=== PATIENT | female | born 1950 | race Caucasian/White ===

== ENCOUNTER 2017-12-13 09:45 | Outpatient (RCR) | payer MEDICARE, OTHER, SELFPAY ==
--- NOTE | 2017-11-01 12:23 | PT.OIE ---
Current Diagnoses Strain of unspecified muscle, fascia and tendon at shoulder and upper arm level, right arm, initial encounter (10/31/17) Sprain of unspecified ligament of right ankle, initial encounter (10/31/17) Past Medical History (Last Reviewed 09/13/17 @ 16:46 by Dannielle Craig DO) Allergic rhinitis (Chronic Unknown) Asthma (Chronic Unknown) Herpes (Chronic 1971) Abnormal Pap smear of cervix (Resolved Unknown) Cataracts, bilateral (Resolved 2013) Chickenpox (Resolved ~1950) Colon polyps (Resolved 2014) History of DVT (deep vein thrombosis) (Resolved ~2006) Measles (Resolved ~1950) Past Surgical History (Last Reviewed 09/13/17 @ 16:46 by Dannielle Craig DO) Hx of inguinal hernia repair (Resolved 06/2012) Hx of shoulder surgery (Resolved 2002) History of cataract removal with insertion of prosthetic lens History of knee replacement (2006) Status post colectomy Provider Visit Care Team Role Provider Type Dannielle Craig DO Attending Provider Physician Family Provider Primary Care Provider Specialty: Family Practice Address: [address] [place] [address], [facility] Email: [email or web address] Physical Therapy Initial Evaluation PT-OP-A Visit Information Start: 10/31/17 13:18 Freq: Status: Active Protocol: Document 10/31/17 13:48 EA (Rec: 10/31/17 13:53 EA [id number]) Out-Patient Physical Therapy Visit Information Visit Information Visit Type Initial Evaluation Visit Start Time 12:15 Visit Stop Time 12:55 Total Visit Minutes 40 Visit Number 1 Evaluation Information Evaluation Date 10/31/17 PT-OP-B Current Condition Start: 10/31/17 13:18 Freq: Status: Active Protocol: Document 10/31/17 13:48 EA (Rec: 10/31/17 13:53 EA [id number]) Current Condition History of Current Condition Onset Date 3 years ago Current Complaints Right ankle and shoulder pain History of Current Condition Present c/o right ankle condition started 3 years ago after/during R knee replacement. Patient reports had pool therapy and use equipment that made ankle to injured; states did not noticed the severity of injury as she was focused with knee rehab. Patient then noticed throughout 3 years after surgery that right ankle is not getting better, icing and rest help but kept coming once increased weight bearing activities. A month ago patient prompted to see her doctor referred to PT with for evaluation including right shoulder discomfort. Pt states right shoulder had history of arthroscopic surgery 18 years ago with no formal PT; denies loss of motion and function; states discomfort with wrong extreme movements only. Prior Treatments and Tests Right knee TKA with formal PT (2014) Future Testing and Treatments Planned None at the moment Treatment Goals Patient/Caregiver Goals 1. Be able to walk without increase in symptoms 2. Be able walk on trails with increase strength and stability 3. Decrease morning stiffness. 4. Be able to use right shoulder without discomfort. Prior Functional Status Baseline Function- ADL's Independent Baseline Function- Mobility Independent Current Functional Impairments (Reported) Functional Limitations- ADL's Indep Functional Limitations- Mobility/Gait Inability to sustain more than 20 mins of walking due to increase right ankle symptoms Functional Limitations- Recreation/ Inability to perform trail Hobbies walking or uneven surface walking Personal Factors Other Personal Factors That May Effect None identified barriers to Therapy/Recovery rehab at this time. PT-OP-C Subjective Start: 10/31/17 13:18 Freq: Status: Active Protocol: Document 10/31/17 16:45 EA (Rec: 11/01/17 09:28 EA [id number]) OP-PT Subjective Patient Comments Patient Comments Patient c/o right ankle symptoms worsening with increasing WB activities and right shoulder discomfort with most overhead movement. Patient Reported Progress Same Patient Questionnaires Foot & Ankle Ability Measure- ADL and Sports FAAM-ADL Impairment 20 to 39% Impaired (Score 50- 66) Quick Dash- Upper Extremity Quick Dash UE Score 3 Quick Dash UE Impairment 1 to 19% Impaired (Score 1-19) PT-OP-D Balance Start: 10/31/17 13:18 Freq: Status: Active Protocol: Document 10/31/17 16:45 EA (Rec: 11/01/17 09:29 EA [id number]) Balance Tests Single Limb Standing Single Limb- Right < 10 seconds Single Limb- Left > 10 secs PT-OP-G Mobility & Gait Start: 10/31/17 13:18 Freq: Status: Active Protocol: Document 10/31/17 16:45 EA (Rec: 11/01/17 09:28 EA [id number]) OP Gait Assessment Gait Deviations General Gait Pattern Antalgic Comments Gait Comments Slight antalgic PT-OP-J Posture/Palpation/Skin Start: 10/31/17 13:18 Freq: Status: Active Protocol: Document 10/31/17 16:45 EA (Rec: 11/01/17 09:28 EA [id number]) Palpation Assessment Location Two Palpation Location right ankle Palpation Details Grade 2 tenderness over right lateral ankle joint and anterolat. One Palpation Location Right shoulder Palpation Findings Tenderness Palpation Details Grade 1 tenderness over right anterolateral shoulder PT-OP-K Range of Motion Start: 10/31/17 13:18 Freq: Status: Active Protocol: Document 10/31/17 16:45 EA (Rec: 11/01/17 09:28 EA [id number]) Shoulder Goniometric Range of Motion Shoulder Measured in Degrees Right Active Shoulder ROM WFL Yes Knee Goniometric Range of Motion Knee Measured in Degrees Right Knee ROM WFL Yes Ankle and Foot Goniometric Range of Motion Ankle and Foot Measured in Degrees Right Active Ankle/Foot ROM WFL Yes Testing Position Supine PT-OP-L Special Tests Start: 10/31/17 13:18 Freq: Status: Active Protocol: Document 10/31/17 16:45 EA (Rec: 11/01/17 07:28 EA [id number]) Special Tests Shoulder Special Tests Yergason's Biceps Test Results + العلي Praful Impingement Test Results + Empty Can Test Results - Belly Press Test Results sensitive Foot/Ankle Special Tests Anterior Draw Test Results - Talor Tilt Test Results + Other Special Tests Special Tests 1. Right shoulder ER with resistance increase pain 2. R Ankle Varus test positive PT-OP-M Strength Start: 10/31/17 13:18 Freq: Status: Active Protocol: Document 10/31/17 16:45 EA (Rec: 11/01/17 09:28 EA [id number]) Shoulder Strength Shoulder Manual Muscle Testing Right Flexion 5 Normal Extension 5 Normal Abduction (C5) 4+ Good+ External Rotation 4 Good Internal Rotation 4 Good Ankle/Foot Strength Ankle and Foot Manual Muscle Testing Right Dorsiflexion (L4) 5 Normal Plantarflexion (S1) 4 Good Inversion 4+ Good+ Eversion (S1) 4- Good- PT-OP-Q Treatments Start: 10/31/17 13:18 Freq: Status: Active Protocol: Document 10/31/17 16:45 EA (Rec: 11/01/17 07:28 EA [id number]) Self-Care/Home Management Treatment Education Patient Education Home Exercise Program Joint Protection Pain Management PT-OP-T Assessment and Plan Start: 10/31/17 13:18 Freq: Status: Active Protocol: Document 10/31/17 16:45 EA (Rec: 11/01/17 07:28 EA [id number]) Physical Therapy Assessment Rehab Potential Rehabilitation Potential Good Evaluation Complexity Number of Personal Factors/Comorbidities 1-2 Number of Body Systems Impaired 1-2 Clinical Presentation at Evaluation Evolving Impairments Impairments Edema Gait Pain Strength Goals Four Impairment R Shoulder discomfort with overhead movement and shoulder rotation Custodial Goal (LTG) Patient will have no shoulder discomfort in all overhead movement. Three Impairment Increased ankle soreness and swelling after 20 mins of walking Custodial Goal (LTG) Patient have no c/o of increase soreness and swelling after 20 mins of walk LTG Duration 4 wks Two Impairment Decrease calf functional strength (3 single calf raises /standing) Automatic Corn Grinder Operator Goal (LTG) Patient perform 12 single calf raises for functional gait. LTG Duration 4 wks One Impairment Swelling to right ankle Custodial Goal (LTG) decrease ankle measurement by .5 inch LTG Duration 3 wks Assessment Summary Assessment Pleasant 67 y/o F patient who demonstrates difficulty with single leg stability and slight overhead movement difficulty due to pain and discomfort. Special tests reveals to right shoulder were positive with rotator cuff irritation with rotational and overhead movement. Special tests to right ankle reveals irritation with calcaneofib and possible ant talofib ligament. Patient history and mechanism of injury correlate with the tests. Patient is a good candidate for PT and will benefit to form strengthening , reducing inflammation and as well prevention. Physical Therapy Plan Frequency and Duration Frequency of Treatment 2x/Week Plan of Care Start Date 10/31/17 Plan of Care End Date 12/26/17 Next Visit Focus/Plan Next Note Type Treatment Note Next Visit Plan 1. right shoulder rotators strengthening 2. HEP 3. Ankle strengthening 4. scar mob.
--- NOTE | 2017-11-01 12:25 | PT.OPPOC ---
Current Diagnoses Strain of unspecified muscle, fascia and tendon at shoulder and upper arm level, right arm, initial encounter (10/31/17) Sprain of unspecified ligament of right ankle, initial encounter (10/31/17) Provider Visit Care Team Role Provider Type Dannielle Craig DO Attending Provider Physician Family Provider Primary Care Provider Specialty: Family Practice Address: [address] [place] [address], [id number] Email: [email or web address] Plan Of Care PT-OP-T Assessment and Plan Start: 10/31/17 13:18 Freq: Status: Active Protocol: Document 10/31/17 16:45 EA (Rec: 11/01/17 07:28 EA [id number]) Physical Therapy Assessment Rehab Potential Rehabilitation Potential Good Evaluation Complexity Number of Personal Factors/Comorbidities 1-2 Number of Body Systems Impaired 1-2 Clinical Presentation at Evaluation Evolving Impairments Impairments Edema Gait Pain Strength Goals Four Impairment R Shoulder discomfort with overhead movement and shoulder rotation Snf Goal (LTG) Patient will have no shoulder discomfort in all overhead movement. Three Impairment Increased ankle soreness and swelling after 20 mins of walking Correctional Officer Sergeant Goal (LTG) Patient have no c/o of increase soreness and swelling after 20 mins of walk LTG Duration 4 wks Two Impairment Decreased calf functional strength (3 single calf raises /standing) Snf Goal (LTG) Patient perform 12 single calf raises for functional gait. LTG Duration 4 wks One Impairment Swelling to right ankle Snf Goal (LTG) decrease ankle measurement by .5 inch LTG Duration 3 wks Assessment Summary Assessment Pleasant 67 y/o F patient who demonstrates difficulty with single leg stability and slight overhead movement difficulty due to pain and discomfort. Special tests reveals to right shoulder were positive with rotator cuff irritation with rotational and overhead movement. Special tests to right ankle reveals irritation with calcaneofib and possible ant talofib ligament. Patient history and mechanism of injury correlate with the tests. Patient is a good candidate for PT and will benefit to form strengthening , reducing inflammation and as well prevention. Physical Therapy Plan Frequency and Duration Frequency of Treatment 2x/Week Plan of Care Start Date 10/31/17 Plan of Care End Date 12/26/17 Next Visit Focus/Plan Next Note Type Treatment Note Next Visit Plan 1. right shoulder rotators strengthening 2. HEP 3. Ankle strengthening 4. scar mob. Plan of Care Dates Plan of Care Start Date 10/31/17 Plan of Care End Date 12/26/17 Please Sign and Return: I have reviewed this Plan of Care and certify that the skilled therapy services above are required to meet the patient?s needs. Physician Signature Date Printed Name and Credentials Clinical Instructor Signature Printed Name and Credentials
--- NOTE | 2017-11-09 16:52 | PT.OTN ---
Current Diagnoses Strain of unspecified muscle, fascia and tendon at shoulder and upper arm level, right arm, initial encounter (11/09/17) Sprain of unspecified ligament of right ankle, initial encounter (11/09/17) Physical Therapy Treatment Note PT-OP-A Visit Information Start: 10/31/17 13:18 Freq: Status: Active Protocol: Document 11/09/17 16:40 EA (Rec: 11/09/17 16:48 EA [id number]) Out-Patient Physical Therapy Visit Information Visit Information Visit Type Treatment Note Visit Start Time 16:00 Visit Stop Time 16:40 Total Visit Minutes 40 Visit Number 2 PT-OP-B Current Condition Start: 10/31/17 13:18 Freq: Status: Active Protocol: Document 10/31/17 13:48 EA (Rec: 10/31/17 13:53 EA [id number]) Current Condition History of Current Condition Onset Date 3 years ago Current Complaints Right ankle and shoulder pain History of Current Condition Present c/o right ankle condition strated 3 years ago after/during R knee replacement. Patient reports had pool therapy and use equipment that made ankle to injured; states did not noticed the severity of injury as she was focused with rehabing the knee. Patient then noticed throughout 3 years after surgery that right ankle is not getting better, icing and rest help but kept coming once increased weight bearing activities. A month ago patient prompted to see her doctor referred to PT with for evaluation including right shoulder discomfort. Pt states right shoulder had history of arthroscopic surgery 18 years ago with no formal PT; denies loss of motion and function; states discomfort with wrong extreme movements only. Prior Treatments and Tests Right knee TKA with formal PT (2014) Future Testing and Treatments Planned None at the moment Treatment Goals Patient/Caregiver Goals 1. Be able to walk without increase in symptoms 2. Be able walk on trails with increase strength and stability 3. Decrease morning stiffness. 4. Be able to use right shoulder without discomfort. Prior Functional Status Baseline Function- ADL's Independent Baseline Function- Mobility Independent Current Functional Impairments (Reported) Functional Limitations- ADL's Indep Functional Limitations- Mobility/Gait Inability to sustain more than 20 mins of walking due to increase right ankle symptoms Functional Limitations- Recreation/ Inability to perform trail Hobbies walking or uneven surface walking Personal Factors Other Personal Factors That May Effect None identified barriers to Therapy/Recovery rehab at this time. PT-OP-C Subjective Start: 10/31/17 13:18 Freq: Status: Active Protocol: Document 11/09/17 16:40 EA (Rec: 11/09/17 16:48 EA [id number]) OP-PT Subjective Patient Comments Patient Comments Pt reports right ankle is quite sore after walking a lot yesterday PT-OP-D Balance Start: 10/31/17 13:18 Freq: Status: Active Protocol: Document 10/31/17 16:45 EA (Rec: 11/01/17 09:29 EA [id number]) Balance Tests Single Limb Standing Single Limb- Right < 10 seconds Single Limb- Left > 10 secs PT-OP-G Mobility & Gait Start: 10/31/17 13:18 Freq: Status: Active Protocol: Document 10/31/17 16:45 EA (Rec: 11/01/17 09:28 EA [id number]) OP Gait Assessment Gait Deviations General Gait Pattern Antalgic Comments Gait Comments Slight antalgic PT-OP-J Posture/Palpation/Skin Start: 10/31/17 13:18 Freq: Status: Active Protocol: Document 10/31/17 16:45 EA (Rec: 11/01/17 09:28 EA [id number]) Palpation Assessment Location Two Palpation Location right ankle Palpation Details Grade 2 tenderness over right lateral ankle joint and anterolat. One Palpation Location Right shoulder Palpation Findings Tenderness Palpation Details Grade 1 tenderness over right anterolateral shoulder PT-OP-K Range of Motion Start: 10/31/17 13:18 Freq: Status: Active Protocol: Document 10/31/17 16:45 EA (Rec: 11/01/17 09:28 EA [id number]) Shoulder Goniometric Range of Motion Shoulder Measured in Degrees Right Active Shoulder ROM WFL Yes Knee Goniometric Range of Motion Knee Measured in Degrees Right Knee ROM WFL Yes Ankle and Foot Goniometric Range of Motion Ankle and Foot Measured in Degrees Right Active Ankle/Foot ROM WFL Yes Testing Position Supine PT-OP-L Special Tests Start: 10/31/17 13:18 Freq: Status: Active Protocol: Document 10/31/17 16:45 EA (Rec: 11/01/17 07:28 EA [id number]) Special Tests Shoulder Special Tests Yergason's Biceps Test Results + العلي Praful Impingement Test Results + Empty Can Test Results - Belly Press Test Results sensitive Foot/Ankle Special Tests Anterior Draw Test Results - Talor Tilt Test Results + Other Special Tests Special Tests 1. Right shoulder ER with resistance increase pain 2. R Ankle Varus test positive PT-OP-M Strength Start: 10/31/17 13:18 Freq: Status: Active Protocol: Document 10/31/17 16:45 EA (Rec: 11/01/17 09:28 EA [id number]) Shoulder Strength Shoulder Manual Muscle Testing Right Flexion 5 Normal Extension 5 Normal Abduction (C5) 4+ Good+ External Rotation 4 Good Internal Rotation 4 Good Ankle/Foot Strength Ankle and Foot Manual Muscle Testing Right Dorsiflexion (L4) 5 Normal Plantarflexion (S1) 4 Good Inversion 4+ Good+ Eversion (S1) 4- Good- PT-OP-Q Treatments Start: 10/31/17 13:18 Freq: Status: Active Protocol: Document 11/09/17 16:40 EA (Rec: 11/09/17 16:48 EA [id number]) Cardio Equipment Recumbent Stepper (Sci-Fit) Duration (Minutes) 5 Seat Position 7 Other warm up Therapeutic Exercises Sitting Exercises 1 Sitting Exercise Name R ankle Eversion Resistance YTB Reps/Minutes 10 reps Standing Exercises 1 Standing Exercise Name calves stretch Reps/Minutes x15 SH x 2 Manual Therapy Treatment Soft Tissue Mobilization 1 Body Location right talofib and calcaneofib Intensity/Depth Moderate Joint Mobilizations 1 Joint distal Tib/fib jnt Direction post/sup Grade II Body Position Sitting Comments long sitting PT-OP-R Modalities Start: 10/31/17 13:18 Freq: Status: Active Protocol: Document 11/09/17 16:40 EA (Rec: 11/09/17 16:48 EA [id number]) Electric Stimulation Electric Stimulation Interferential Current (IFC) Body Location right peroneals Duration (Minutes) 15 Combined With Heat/Cold Cold Pack Ultrasound Therapy Treatment Right Lateral Ankle Treatment Duration (minutes) 5 Patient Position Prone Frequency Setting (mHz) 3 Intensity Setting (w/cm2) 1.0 PT-OP-T Assessment and Plan Start: 10/31/17 13:18 Freq: Status: Active Protocol: Document 11/09/17 16:40 EA (Rec: 11/09/17 16:48 EA [id number]) Physical Therapy Assessment Assessment Summary Assessment Tolerated treatment well. Physical Therapy Plan Next Visit Focus/Plan Next Visit Plan Cont. with current plan.
--- NOTE | 2017-11-13 16:04 | PT.OTN ---
Current Diagnoses Strain of unspecified muscle, fascia and tendon at shoulder and upper arm level, right arm, initial encounter (11/13/17) Sprain of unspecified ligament of right ankle, initial encounter (11/13/17) Physical Therapy Treatment Note PT-OP-A Visit Information Start: 10/31/17 13:18 Freq: Status: Active Protocol: Document 11/13/17 15:14 EA (Rec: 11/13/17 15:18 EA [id number]) Out-Patient Physical Therapy Visit Information Visit Information Visit Type Treatment Note Visit Start Time 02:30 Visit Stop Time 03:15 Total Visit Minutes 45 Visit Number 4 PT-OP-B Current Condition Start: 10/31/17 13:18 Freq: Status: Active Protocol: Document 10/31/17 13:48 EA (Rec: 10/31/17 13:53 EA [id number]) Current Condition History of Current Condition Onset Date 3 years ago Current Complaints Right ankle and shoulder pain History of Current Condition Present c/o right ankle condition strated 3 years ago after/during R knee replacement. Patient reports had pool therapy and use equipment that made ankle to injured; states did not noticed the severity of injury as she was focused with rehabing the knee. Patient then noticed throughout 3 years after surgery that right ankle is not getting better, icing and rest help but kept coming once increased weight bearing activities. A month ago patient prompted to see her doctor referred to PT with for evaluation including right shoulder discomfort. Pt states right shoulder had history of arthroscopic surgery 18 years ago with no formal PT; denies loss of motion and function; states discomfort with wrong extreme movements only. Prior Treatments and Tests Right knee TKA with formal PT (2014) Future Testing and Treatments Planned None at the moment Treatment Goals Patient/Caregiver Goals 1. Be able to walk without increase in symptoms 2. Be able walk on trails with increase strength and stability 3. Decrease morning stiffness. 4. Be able to use right shoulder without discomfort. Prior Functional Status Baseline Function- ADL's Independent Baseline Function- Mobility Independent Current Functional Impairments (Reported) Functional Limitations- ADL's Indep Functional Limitations- Mobility/Gait Inability to sustain more than 20 mins of walking due to increase right ankle symptoms Functional Limitations- Recreation/ Inability to perform trail Hobbies walking or uneven surface walking Personal Factors Other Personal Factors That May Effect None identified barriers to Therapy/Recovery rehab at this time. PT-OP-C Subjective Start: 10/31/17 13:18 Freq: Status: Active Protocol: Document 11/13/17 15:14 EA (Rec: 11/13/17 15:18 EA [id number]) OP-PT Subjective Patient Comments Patient Comments Pt reports right ankle is much feeling better since last session; states increased wlaking but no increase in symtoms PT-OP-D Balance Start: 10/31/17 13:18 Freq: Status: Active Protocol: Document 10/31/17 16:45 EA (Rec: 11/01/17 09:29 EA [id number]) Balance Tests Single Limb Standing Single Limb- Right < 10 seconds Single Limb- Left > 10 secs PT-OP-G Mobility & Gait Start: 10/31/17 13:18 Freq: Status: Active Protocol: Document 10/31/17 16:45 EA (Rec: 11/01/17 09:28 EA [id number]) OP Gait Assessment Gait Deviations General Gait Pattern Antalgic Comments Gait Comments Slight antalgic PT-OP-J Posture/Palpation/Skin Start: 10/31/17 13:18 Freq: Status: Active Protocol: Document 10/31/17 16:45 EA (Rec: 11/01/17 09:28 EA [id number]) Palpation Assessment Location Two Palpation Location right ankle Palpation Details Grade 2 tenderness over right lateral ankle joint and anterolat. One Palpation Location Right shoulder Palpation Findings Tenderness Palpation Details Grade 1 tenderness over right anterolateral shoulder PT-OP-K Range of Motion Start: 10/31/17 13:18 Freq: Status: Active Protocol: Document 10/31/17 16:45 EA (Rec: 11/01/17 09:28 EA [id number]) Shoulder Goniometric Range of Motion Shoulder Measured in Degrees Right Active Shoulder ROM WFL Yes Knee Goniometric Range of Motion Knee Measured in Degrees Right Knee ROM WFL Yes Ankle and Foot Goniometric Range of Motion Ankle and Foot Measured in Degrees Right Active Ankle/Foot ROM WFL Yes Testing Position Supine PT-OP-L Special Tests Start: 10/31/17 13:18 Freq: Status: Active Protocol: Document 10/31/17 16:45 EA (Rec: 11/01/17 07:28 EA [id number]) Special Tests Shoulder Special Tests Yergason's Biceps Test Results + العلي Praful Impingement Test Results + Empty Can Test Results - Belly Press Test Results sensitive Foot/Ankle Special Tests Anterior Draw Test Results - Talor Tilt Test Results + Other Special Tests Special Tests 1. Right shoulder ER with resistance increase pain 2. R Ankle Varus test positive PT-OP-M Strength Start: 10/31/17 13:18 Freq: Status: Active Protocol: Document 10/31/17 16:45 EA (Rec: 11/01/17 09:28 EA [id number]) Shoulder Strength Shoulder Manual Muscle Testing Right Flexion 5 Normal Extension 5 Normal Abduction (C5) 4+ Good+ External Rotation 4 Good Internal Rotation 4 Good Ankle/Foot Strength Ankle and Foot Manual Muscle Testing Right Dorsiflexion (L4) 5 Normal Plantarflexion (S1) 4 Good Inversion 4+ Good+ Eversion (S1) 4- Good- PT-OP-Q Treatments Start: 10/31/17 13:18 Freq: Status: Active Protocol: Document 11/13/17 15:14 EA (Rec: 11/13/17 15:18 EA [id number]) Cardio Equipment Recumbent Stepper (Sci-Fit) Duration (Minutes) 5 Seat Position 7 Other warm up Gym Equipment Shuttle Recovery Unilateral Squats Resistance 50 Shuttle Recovery Platform Stable Reps/Time x 15 x 2 sets Therapeutic Exercises Sitting Exercises 1 Sitting Exercise Name R ankle Eversion Resistance YTB Reps/Minutes 10 reps Standing Exercises 2 Standing Exercise Name Single stance on blue foam Reps/Minutes x 10 SH x 3 1 Standing Exercise Name calves stretch Reps/Minutes x15 SH x 2 Manual Therapy Treatment Soft Tissue Mobilization 1 Body Location right talofib and calcaneofib Intensity/Depth Moderate Joint Mobilizations 1 Joint distal Tib/fib jnt Direction post/sup Grade II Body Position Sitting Comments long sitting PT-OP-R Modalities Start: 10/31/17 13:18 Freq: Status: Active Protocol: Document 11/13/17 15:14 EA (Rec: 11/13/17 15:18 EA [id number]) Electric Stimulation Electric Stimulation Interferential Current (IFC) Body Location right peroneals Duration (Minutes) 15 Combined With Heat/Cold Cold Pack Ultrasound Therapy Treatment Right Lateral Ankle Treatment Duration (minutes) 5 Patient Position Supine Frequency Setting (mHz) 3 Intensity Setting (w/cm2) 1.0 PT-OP-T Assessment and Plan Start: 10/31/17 13:18 Freq: Status: Active Protocol: Document 11/13/17 15:14 EA (Rec: 11/13/17 15:18 EA [id number]) Physical Therapy Assessment Assessment Summary Assessment Tolerated treatment well. Physical Therapy Plan Next Visit Focus/Plan Next Note Type Treatment Note Next Visit Plan Progress as tolerated
--- NOTE | 2017-11-20 08:24 | PT.OTN ---
Current Diagnoses Strain of unspecified muscle, fascia and tendon at shoulder and upper arm level, right arm, initial encounter (11/16/17) Sprain of unspecified ligament of right ankle, initial encounter (11/16/17) Physical Therapy Treatment Note PT-OP-A Visit Information Start: 10/31/17 13:18 Freq: Status: Active Protocol: Document 11/16/17 15:56 EA (Rec: 11/16/17 16:03 EA [id number]) Out-Patient Physical Therapy Visit Information Visit Information Visit Type Treatment Note Visit Start Time 16:00 Visit Stop Time 16:45 Total Visit Minutes 45 Visit Number 5 PT-OP-B Current Condition Start: 10/31/17 13:18 Freq: Status: Active Protocol: Document 10/31/17 13:48 EA (Rec: 10/31/17 13:53 EA [id number]) Current Condition History of Current Condition Onset Date 3 years ago Current Complaints Right ankle and shoulder pain History of Current Condition Present c/o right ankle condition strated 3 years ago after/during R knee replacement. Patient reports had pool therapy and use equipment that made ankle to injured; states did not noticed the severity of injury as she was focused with rehabing the knee. Patient then noticed throughout 3 years after surgery that right ankle is not getting better, icing and rest help but kept coming once increased weight bearing activities. A month ago patient prompted to see her doctor referred to PT with for evaluation including right shoulder discomfort. Pt states right shoulder had history of arthroscopic surgery 18 years ago with no formal PT; denies loss of motion and function; states discomfort with wrong extreme movements only. Prior Treatments and Tests Right knee TKA with formal PT (2014) Future Testing and Treatments Planned None at the moment Treatment Goals Patient/Caregiver Goals 1. Be able to walk without increase in symptoms 2. Be able walk on trails with increase strength and stability 3. Decrease morning stiffness. 4. Be able to use right shoulder without discomfort. Prior Functional Status Baseline Function- ADL's Independent Baseline Function- Mobility Independent Current Functional Impairments (Reported) Functional Limitations- ADL's Indep Functional Limitations- Mobility/Gait Inability to sustain more than 20 mins of walking due to increase right ankle symptoms Functional Limitations- Recreation/ Inability to perform trail Hobbies walking or uneven surface walking Personal Factors Other Personal Factors That May Effect None identified barriers to Therapy/Recovery rehab at this time. PT-OP-C Subjective Start: 10/31/17 13:18 Freq: Status: Active Protocol: Document 11/16/17 15:56 EA (Rec: 11/16/17 16:03 EA [id number]) OP-PT Subjective Patient Comments Patient Comments Pt reports abit painful today but swelling is dwon a bit. PT-OP-D Balance Start: 10/31/17 13:18 Freq: Status: Active Protocol: Document 10/31/17 16:45 EA (Rec: 11/01/17 09:29 EA [id number]) Balance Tests Single Limb Standing Single Limb- Right < 10 seconds Single Limb- Left > 10 secs PT-OP-G Mobility & Gait Start: 10/31/17 13:18 Freq: Status: Active Protocol: Document 10/31/17 16:45 EA (Rec: 11/01/17 09:28 EA [id number]) OP Gait Assessment Gait Deviations General Gait Pattern Antalgic Comments Gait Comments Slight antalgic PT-OP-J Posture/Palpation/Skin Start: 10/31/17 13:18 Freq: Status: Active Protocol: Document 10/31/17 16:45 EA (Rec: 11/01/17 09:28 EA [id number]) Palpation Assessment Location Two Palpation Location right ankle Palpation Details Grade 2 tenderness over right lateral ankle joint and anterolat. One Palpation Location Right shoulder Palpation Findings Tenderness Palpation Details Grade 1 tenderness over right anterolateral shoulder PT-OP-K Range of Motion Start: 10/31/17 13:18 Freq: Status: Active Protocol: Document 10/31/17 16:45 EA (Rec: 11/01/17 09:28 EA [id number]) Shoulder Goniometric Range of Motion Shoulder Measured in Degrees Right Active Shoulder ROM WFL Yes Knee Goniometric Range of Motion Knee Measured in Degrees Right Knee ROM WFL Yes Ankle and Foot Goniometric Range of Motion Ankle and Foot Measured in Degrees Right Active Ankle/Foot ROM WFL Yes Testing Position Supine PT-OP-L Special Tests Start: 10/31/17 13:18 Freq: Status: Active Protocol: Document 10/31/17 16:45 EA (Rec: 11/01/17 07:28 EA [id number]) Special Tests Shoulder Special Tests Yergason's Biceps Test Results + العلي Praful Impingement Test Results + Empty Can Test Results - Belly Press Test Results sensitive Foot/Ankle Special Tests Anterior Draw Test Results - Talor Tilt Test Results + Other Special Tests Special Tests 1. Right shoulder ER with resistance increase pain 2. R Ankle Varus test positive PT-OP-M Strength Start: 10/31/17 13:18 Freq: Status: Active Protocol: Document 10/31/17 16:45 EA (Rec: 11/01/17 09:28 EA [id number]) Shoulder Strength Shoulder Manual Muscle Testing Right Flexion 5 Normal Extension 5 Normal Abduction (C5) 4+ Good+ External Rotation 4 Good Internal Rotation 4 Good Ankle/Foot Strength Ankle and Foot Manual Muscle Testing Right Dorsiflexion (L4) 5 Normal Plantarflexion (S1) 4 Good Inversion 4+ Good+ Eversion (S1) 4- Good- PT-OP-Q Treatments Start: 10/31/17 13:18 Freq: Status: Active Protocol: Document 11/16/17 15:56 EA (Rec: 11/16/17 16:03 EA [id number]) Cardio Equipment Recumbent Stepper (Sci-Fit) Duration (Minutes) 5 Seat Position 7 Other warm up Gym Equipment Shuttle Recovery Unilateral Squats Resistance 50 Shuttle Recovery Platform Stable Reps/Time x 15 x 2 sets Therapeutic Exercises Sitting Exercises 1 Sitting Exercise Name R ankle Eversion/DF Resistance RTB/GTB Reps/Minutes 10 reps Standing Exercises 2 Standing Exercise Name Single stance on blue foam Reps/Minutes x 10 SH x 3 1 Standing Exercise Name calves stretch Reps/Minutes x15 SH x 2 Manual Therapy Treatment Soft Tissue Mobilization 1 Body Location right talofib and calcaneofib Intensity/Depth Moderate Joint Mobilizations 1 Joint distal Tib/fib jnt Direction post/sup Grade II Body Position Sitting Comments long sitting PT-OP-R Modalities Start: 10/31/17 13:18 Freq: Status: Active Protocol: Document 11/16/17 15:56 EA (Rec: 11/16/17 16:03 EA [id number]) Ultrasound Therapy Treatment Right Lateral Ankle Treatment Duration (minutes) 5 Patient Position Supine Frequency Setting (mHz) 3 Intensity Setting (w/cm2) 1.0 PT-OP-T Assessment and Plan Start: 10/31/17 13:18 Freq: Status: Active Protocol: Document 11/16/17 16:45 EA (Rec: 11/16/17 16:46 EA [id number]) Physical Therapy Assessment Assessment Summary Assessment Patient tolerated treatment well. Tender area at ths point move to post malleolus. Pain decreased after joint mobilization. Physical Therapy Plan Next Visit Focus/Plan Next Note Type Treatment Note
--- NOTE | 2017-11-20 15:47 | PT.OTN ---
Current Diagnoses Strain of unspecified muscle, fascia and tendon at shoulder and upper arm level, right arm, initial encounter (11/20/17) Sprain of unspecified ligament of right ankle, initial encounter (11/20/17) Physical Therapy Treatment Note PT-OP-A Visit Information Start: 10/31/17 13:18 Freq: Status: Active Protocol: Document 11/20/17 14:33 EA (Rec: 11/20/17 15:13 EA [id number]) Out-Patient Physical Therapy Visit Information Visit Information Visit Type Treatment Note Visit Start Time 14:30 Visit Stop Time 15:20 Total Visit Minutes 50 Visit Number 6 PT-OP-B Current Condition Start: 10/31/17 13:18 Freq: Status: Active Protocol: Document 10/31/17 13:48 EA (Rec: 10/31/17 13:53 EA [id number]) Current Condition History of Current Condition Onset Date 3 years ago Current Complaints Right ankle and shoulder pain History of Current Condition Present c/o right ankle condition strated 3 years ago after/during R knee replacement. Patient reports had pool therapy and use equipment that made ankle to injured; states did not noticed the severity of injury as she was focused with rehabing the knee. Patient then noticed throughout 3 years after surgery that right ankle is not getting better, icing and rest help but kept coming once increased weight bearing activities. A month ago patient prompted to see her doctor referred to PT with for evaluation including right shoulder discomfort. Pt states right shoulder had history of arthroscopic surgery 18 years ago with no formal PT; denies loss of motion and function; states discomfort with wrong extreme movements only. Prior Treatments and Tests Right knee TKA with formal PT (2014) Future Testing and Treatments Planned None at the moment Treatment Goals Patient/Caregiver Goals 1. Be able to walk without increase in symptoms 2. Be able walk on trails with increase strength and stability 3. Decrease morning stiffness. 4. Be able to use right shoulder without discomfort. Prior Functional Status Baseline Function- ADL's Independent Baseline Function- Mobility Independent Current Functional Impairments (Reported) Functional Limitations- ADL's Indep Functional Limitations- Mobility/Gait Inability to sustain more than 20 mins of walking due to increase right ankle symptoms Functional Limitations- Recreation/ Inability to perform trail Hobbies walking or uneven surface walking Personal Factors Other Personal Factors That May Effect None identified barriers to Therapy/Recovery rehab at this time. PT-OP-C Subjective Start: 10/31/17 13:18 Freq: Status: Active Protocol: Document 11/20/17 15:13 EA (Rec: 11/20/17 15:14 EA [id number]) OP-PT Subjective Patient Comments Patient Comments Pt reports almost rolled her ankle yesterday and feels it is swelling today. Patient Reported Progress Worse PT-OP-D Balance Start: 10/31/17 13:18 Freq: Status: Active Protocol: Document 10/31/17 16:45 EA (Rec: 11/01/17 09:29 EA [id number]) Balance Tests Single Limb Standing Single Limb- Right < 10 seconds Single Limb- Left > 10 secs PT-OP-G Mobility & Gait Start: 10/31/17 13:18 Freq: Status: Active Protocol: Document 10/31/17 16:45 EA (Rec: 11/01/17 09:28 EA [id number]) OP Gait Assessment Gait Deviations General Gait Pattern Antalgic Comments Gait Comments Slight antalgic PT-OP-J Posture/Palpation/Skin Start: 10/31/17 13:18 Freq: Status: Active Protocol: Document 10/31/17 16:45 EA (Rec: 11/01/17 09:28 EA [id number]) Palpation Assessment Location Two Palpation Location right ankle Palpation Details Grade 2 tenderness over right lateral ankle joint and anterolat. One Palpation Location Right shoulder Palpation Findings Tenderness Palpation Details Grade 1 tenderness over right anterolateral shoulder PT-OP-K Range of Motion Start: 10/31/17 13:18 Freq: Status: Active Protocol: Document 10/31/17 16:45 EA (Rec: 11/01/17 09:28 EA [id number]) Shoulder Goniometric Range of Motion Shoulder Measured in Degrees Right Active Shoulder ROM WFL Yes Knee Goniometric Range of Motion Knee Measured in Degrees Right Knee ROM WFL Yes Ankle and Foot Goniometric Range of Motion Ankle and Foot Measured in Degrees Right Active Ankle/Foot ROM WFL Yes Testing Position Supine PT-OP-L Special Tests Start: 10/31/17 13:18 Freq: Status: Active Protocol: Document 10/31/17 16:45 EA (Rec: 11/01/17 07:28 EA [id number]) Special Tests Shoulder Special Tests Scottrgason's Biceps Test Results + العلي Praful Impingement Test Results + Empty Can Test Results - Belly Press Test Results sensitive Foot/Ankle Special Tests Anterior Draw Test Results - Talor Tilt Test Results + Other Special Tests Special Tests 1. Right shoulder ER with resistance increase pain 2. R Ankle Varus test positive PT-OP-M Strength Start: 10/31/17 13:18 Freq: Status: Active Protocol: Document 10/31/17 16:45 EA (Rec: 11/01/17 09:28 EA [id number]) Shoulder Strength Shoulder Manual Muscle Testing Right Flexion 5 Normal Extension 5 Normal Abduction (C5) 4+ Good+ External Rotation 4 Good Internal Rotation 4 Good Ankle/Foot Strength Ankle and Foot Manual Muscle Testing Right Dorsiflexion (L4) 5 Normal Plantarflexion (S1) 4 Good Inversion 4+ Good+ Eversion (S1) 4- Good- PT-OP-Q Treatments Start: 10/31/17 13:18 Freq: Status: Active Protocol: Document 11/20/17 14:33 EA (Rec: 11/20/17 15:13 EA [id number]) Cardio Equipment Recumbent Stepper (Sci-Fit) Duration (Minutes) 5 Seat Position 7 Other warm up Therapeutic Exercises Sitting Exercises 1 Sitting Exercise Name R ankle Eversion/DF Resistance RTB/GTB Reps/Minutes 10 reps Standing Exercises 2 Standing Exercise Name Single stance on blue foam Reps/Minutes x 10 SH x 3 1 Standing Exercise Name calves stretch Reps/Minutes x15 SH x 2 Manual Therapy Treatment Soft Tissue Mobilization 1 Body Location right talofib and calcaneofib Intensity/Depth Moderate Joint Mobilizations 1 Joint distal Tib/fib jnt Direction post/sup Grade II Body Position Sitting Comments long sitting PT-OP-R Modalities Start: 10/31/17 13:18 Freq: Status: Active Protocol: Document 11/20/17 14:33 EA (Rec: 11/20/17 15:13 EA [id number]) Electric Stimulation Electric Stimulation Interferential Current (IFC) Body Location right peroneals Duration (Minutes) 15 Combined With Heat/Cold Cold Pack PT-OP-T Assessment and Plan Start: 10/31/17 13:18 Freq: Status: Active Protocol: Document 11/20/17 14:33 EA (Rec: 11/20/17 15:13 EA [id number]) Physical Therapy Assessment Assessment Summary Assessment Pt tolerated treatment. Physical Therapy Plan Next Visit Focus/Plan Next Visit Plan Progress as tolerated.
--- NOTE | 2017-11-27 15:53 | PT.OTN ---
Current Diagnoses Strain of unspecified muscle, fascia and tendon at shoulder and upper arm level, right arm, initial encounter (11/27/17) Sprain of unspecified ligament of right ankle, initial encounter (11/27/17) Physical Therapy Treatment Note PT-OP-A Visit Information Start: 10/31/17 13:18 Freq: Status: Active Protocol: Document 11/27/17 13:45 EA (Rec: 11/27/17 14:38 EA [id number]) Out-Patient Physical Therapy Visit Information Visit Information Visit Type Treatment Note Visit Start Time 13:45 Visit Stop Time 14:30 Total Visit Minutes 50 Visit Number 7 PT-OP-B Current Condition Start: 10/31/17 13:18 Freq: Status: Active Protocol: Document 10/31/17 13:48 EA (Rec: 10/31/17 13:53 EA [id number]) Current Condition History of Current Condition Onset Date 3 years ago Current Complaints Right ankle and shoulder pain History of Current Condition Present c/o right ankle condition strated 3 years ago after/during R knee replacement. Patient reports had pool therapy and use equipment that made ankle to injured; states did not noticed the severity of injury as she was focused with rehabing the knee. Patient then noticed throughout 3 years after surgery that right ankle is not getting better, icing and rest help but kept coming once increased weight bearing activities. A month ago patient prompted to see her doctor referred to PT with for evaluation including right shoulder discomfort. Pt states right shoulder had history of arthroscopic surgery 18 years ago with no formal PT; denies loss of motion and function; states discomfort with wrong extreme movements only. Prior Treatments and Tests Right knee TKA with formal PT (2014) Future Testing and Treatments Planned None at the moment Treatment Goals Patient/Caregiver Goals 1. Be able to walk without increase in symptoms 2. Be able walk on trails with increase strength and stability 3. Decrease morning stiffness. 4. Be able to use right shoulder without discomfort. Prior Functional Status Baseline Function- ADL's Independent Baseline Function- Mobility Independent Current Functional Impairments (Reported) Functional Limitations- ADL's Indep Functional Limitations- Mobility/Gait Inability to sustain more than 20 mins of walking due to increase right ankle symptoms Functional Limitations- Recreation/ Inability to perform trail Hobbies walking or uneven surface walking Personal Factors Other Personal Factors That May Effect None identified barriers to Therapy/Recovery rehab at this time. PT-OP-C Subjective Start: 10/31/17 13:18 Freq: Status: Active Protocol: Document 11/27/17 13:45 EA (Rec: 11/27/17 14:38 EA [id number]) OP-PT Subjective Patient Comments Patient Comments Pt reports right ankle swelled up after lots of walking; states pain does not altered wlaking pattern. PT-OP-D Balance Start: 10/31/17 13:18 Freq: Status: Active Protocol: Document 10/31/17 16:45 EA (Rec: 11/01/17 09:29 EA [id number]) Balance Tests Single Limb Standing Single Limb- Right < 10 seconds Single Limb- Left > 10 secs PT-OP-G Mobility & Gait Start: 10/31/17 13:18 Freq: Status: Active Protocol: Document 10/31/17 16:45 EA (Rec: 11/01/17 09:28 EA [id number]) OP Gait Assessment Gait Deviations General Gait Pattern Antalgic Comments Gait Comments Slight antalgic PT-OP-J Posture/Palpation/Skin Start: 10/31/17 13:18 Freq: Status: Active Protocol: Document 10/31/17 16:45 EA (Rec: 11/01/17 09:28 EA [id number]) Palpation Assessment Location Two Palpation Location right ankle Palpation Details Grade 2 tenderness over right lateral ankle joint and anterolat. One Palpation Location Right shoulder Palpation Findings Tenderness Palpation Details Grade 1 tenderness over right anterolateral shoulder PT-OP-K Range of Motion Start: 10/31/17 13:18 Freq: Status: Active Protocol: Document 10/31/17 16:45 EA (Rec: 11/01/17 09:28 EA [id number]) Shoulder Goniometric Range of Motion Shoulder Measured in Degrees Right Active Shoulder ROM WFL Yes Knee Goniometric Range of Motion Knee Measured in Degrees Right Knee ROM WFL Yes Ankle and Foot Goniometric Range of Motion Ankle and Foot Measured in Degrees Right Active Ankle/Foot ROM WFL Yes Testing Position Supine PT-OP-L Special Tests Start: 10/31/17 13:18 Freq: Status: Active Protocol: Document 10/31/17 16:45 EA (Rec: 11/01/17 07:28 EA [id number]) Special Tests Shoulder Special Tests Yergason's Biceps Test Results + العلي Praful Impingement Test Results + Empty Can Test Results - Belly Press Test Results sensitive Foot/Ankle Special Tests Anterior Draw Test Results - Talor Tilt Test Results + Other Special Tests Special Tests 1. Right shoulder ER with resistance increase pain 2. R Ankle Varus test positive PT-OP-M Strength Start: 10/31/17 13:18 Freq: Status: Active Protocol: Document 10/31/17 16:45 EA (Rec: 11/01/17 09:28 EA [id number]) Shoulder Strength Shoulder Manual Muscle Testing Right Flexion 5 Normal Extension 5 Normal Abduction (C5) 4+ Good+ External Rotation 4 Good Internal Rotation 4 Good Ankle/Foot Strength Ankle and Foot Manual Muscle Testing Right Dorsiflexion (L4) 5 Normal Plantarflexion (S1) 4 Good Inversion 4+ Good+ Eversion (S1) 4- Good- PT-OP-Q Treatments Start: 10/31/17 13:18 Freq: Status: Active Protocol: Document 11/27/17 13:45 EA (Rec: 11/27/17 14:38 EA [id number]) Cardio Equipment Recumbent Stepper (Sci-Fit) Duration (Minutes) 5 Seat Position 7 Other warm up Therapeutic Exercises Sitting Exercises 1 Sitting Exercise Name R ankle Eversion/DF Resistance RTB/GTB Reps/Minutes 10 reps Manual Therapy Treatment Soft Tissue Mobilization 1 Body Location right talofib and calcaneofib Intensity/Depth Moderate Joint Mobilizations 1 Joint distal Tib/fib jnt Direction post/sup Grade II Body Position Sitting Comments long sitting PT-OP-R Modalities Start: 10/31/17 13:18 Freq: Status: Active Protocol: Document 11/27/17 13:45 EA (Rec: 11/27/17 14:38 EA [id number]) Ultrasound Therapy Treatment Right Lateral Ankle Treatment Duration (minutes) 5 Patient Position Supine Frequency Setting (mHz) 3 Intensity Setting (w/cm2) 1.0 PT-OP-T Assessment and Plan Start: 10/31/17 13:18 Freq: Status: Active Protocol: Document 11/27/17 13:45 EA (Rec: 11/27/17 14:38 EA [id number]) Physical Therapy Assessment Assessment Summary Assessment Pt had less symptoms at this time. Cont with current plan. advance as tolerated. Physical Therapy Plan Next Visit Focus/Plan Next Note Type Treatment Note Next Visit Plan Progress as tolerated.
--- NOTE | 2017-11-30 16:02 | PT.OTN ---
Current Diagnoses Strain of unspecified muscle, fascia and tendon at shoulder and upper arm level, right arm, initial encounter (11/30/17) Sprain of unspecified ligament of right ankle, initial encounter (11/30/17) Physical Therapy Treatment Note PT-OP-A Visit Information Start: 10/31/17 13:18 Freq: Status: Active Protocol: Document 11/30/17 13:42 EA (Rec: 11/30/17 14:33 EA [id number]) Out-Patient Physical Therapy Visit Information Visit Information Visit Type Treatment Note Visit Start Time 13:45 Visit Stop Time 14:30 Total Visit Minutes 50 Visit Number 7 PT-OP-B Current Condition Start: 10/31/17 13:18 Freq: Status: Active Protocol: Document 10/31/17 13:48 EA (Rec: 10/31/17 13:53 EA [id number]) Current Condition History of Current Condition Onset Date 3 years ago Current Complaints Right ankle and shoulder pain History of Current Condition Present c/o right ankle condition strated 3 years ago after/during R knee replacement. Patient reports had pool therapy and use equipment that made ankle to injured; states did not noticed the severity of injury as she was focused with rehabing the knee. Patient then noticed throughout 3 years after surgery that right ankle is not getting better, icing and rest help but kept coming once increased weight bearing activities. A month ago patient prompted to see her doctor referred to PT with for evaluation including right shoulder discomfort. Pt states right shoulder had history of arthroscopic surgery 18 years ago with no formal PT; denies loss of motion and function; states discomfort with wrong extreme movements only. Prior Treatments and Tests Right knee TKA with formal PT (2014) Future Testing and Treatments Planned None at the moment Treatment Goals Patient/Caregiver Goals 1. Be able to walk without increase in symptoms 2. Be able walk on trails with increase strength and stability 3. Decrease morning stiffness. 4. Be able to use right shoulder without discomfort. Prior Functional Status Baseline Function- ADL's Independent Baseline Function- Mobility Independent Current Functional Impairments (Reported) Functional Limitations- ADL's Indep Functional Limitations- Mobility/Gait Inability to sustain more than 20 mins of walking due to increase right ankle symptoms Functional Limitations- Recreation/ Inability to perform trail Hobbies walking or uneven surface walking Personal Factors Other Personal Factors That May Effect None identified barriers to Therapy/Recovery rehab at this time. PT-OP-C Subjective Start: 10/31/17 13:18 Freq: Status: Active Protocol: Document 11/30/17 13:42 EA (Rec: 11/30/17 14:33 EA [id number]) OP-PT Subjective Patient Comments Patient Comments Pt reports had 2 hours trail walk; states stepping down to uneven made it discomfort but was not enough to alter walking pattern; states sore ankle started few hours after rest. PT-OP-D Balance Start: 10/31/17 13:18 Freq: Status: Active Protocol: Document 10/31/17 16:45 EA (Rec: 11/01/17 09:29 EA [id number]) Balance Tests Single Limb Standing Single Limb- Right < 10 seconds Single Limb- Left > 10 secs PT-OP-G Mobility & Gait Start: 10/31/17 13:18 Freq: Status: Active Protocol: Document 10/31/17 16:45 EA (Rec: 11/01/17 09:28 EA [id number]) OP Gait Assessment Gait Deviations General Gait Pattern Antalgic Comments Gait Comments Slight antalgic PT-OP-J Posture/Palpation/Skin Start: 10/31/17 13:18 Freq: Status: Active Protocol: Document 10/31/17 16:45 EA (Rec: 11/01/17 09:28 EA [id number]) Palpation Assessment Location Two Palpation Location right ankle Palpation Details Grade 2 tenderness over right lateral ankle joint and anterolat. One Palpation Location Right shoulder Palpation Findings Tenderness Palpation Details Grade 1 tenderness over right anterolateral shoulder PT-OP-K Range of Motion Start: 10/31/17 13:18 Freq: Status: Active Protocol: Document 10/31/17 16:45 EA (Rec: 11/01/17 09:28 EA [id number]) Shoulder Goniometric Range of Motion Shoulder Measured in Degrees Right Active Shoulder ROM WFL Yes Knee Goniometric Range of Motion Knee Measured in Degrees Right Knee ROM WFL Yes Ankle and Foot Goniometric Range of Motion Ankle and Foot Measured in Degrees Right Active Ankle/Foot ROM WFL Yes Testing Position Supine PT-OP-L Special Tests Start: 10/31/17 13:18 Freq: Status: Active Protocol: Document 10/31/17 16:45 EA (Rec: 11/01/17 07:28 EA [id number]) Special Tests Shoulder Special Tests Yergason's Biceps Test Results + العلي Praful Impingement Test Results + Empty Can Test Results - Belly Press Test Results sensitive Foot/Ankle Special Tests Anterior Draw Test Results - Talor Tilt Test Results + Other Special Tests Special Tests 1. Right shoulder ER with resistance increase pain 2. R Ankle Varus test positive PT-OP-M Strength Start: 10/31/17 13:18 Freq: Status: Active Protocol: Document 10/31/17 16:45 EA (Rec: 11/01/17 09:28 EA [id number]) Shoulder Strength Shoulder Manual Muscle Testing Right Flexion 5 Normal Extension 5 Normal Abduction (C5) 4+ Good+ External Rotation 4 Good Internal Rotation 4 Good Ankle/Foot Strength Ankle and Foot Manual Muscle Testing Right Dorsiflexion (L4) 5 Normal Plantarflexion (S1) 4 Good Inversion 4+ Good+ Eversion (S1) 4- Good- PT-OP-Q Treatments Start: 10/31/17 13:18 Freq: Status: Active Protocol: Document 11/30/17 13:42 EA (Rec: 11/30/17 14:33 EA [id number]) Cardio Equipment Recumbent Stepper (Sci-Fit) Duration (Minutes) 5 Seat Position 7 Other warm up Therapeutic Exercises Sitting Exercises 1 Sitting Exercise Name R ankle Eversion/DF Resistance RTB/GTB Reps/Minutes 10 reps Standing Exercises 3 Standing Exercise Name BUSO step up/down FWD and SWD Comments W/ single to no hand support 2 Standing Exercise Name Single stance on blue foam; Reps/Minutes x 10 SH x 3 Manual Therapy Treatment Soft Tissue Mobilization 1 Body Location right talofib and calcaneofib Intensity/Depth Moderate Joint Mobilizations 1 Joint distal Tib/fib jnt Direction post/sup Grade II Body Position Sitting Comments long sitting PT-OP-R Modalities Start: 10/31/17 13:18 Freq: Status: Active Protocol: Document 11/30/17 13:42 EA (Rec: 11/30/17 14:33 EA [id number]) Electric Stimulation Electric Stimulation Interferential Current (IFC) Body Location right peroneals Duration (Minutes) 15 Combined With Heat/Cold Cold Pack Ultrasound Therapy Treatment Right Lateral Ankle Treatment Duration (minutes) 5 Patient Position Supine Frequency Setting (mHz) 3 Intensity Setting (w/cm2) 1.0 PT-OP-T Assessment and Plan Start: 10/31/17 13:18 Freq: Status: Active Protocol: Document 11/30/17 13:42 EA (Rec: 11/30/17 14:33 EA [id number]) Physical Therapy Assessment Assessment Summary Assessment No acute inflammation noted; patient had less tenderness today. Patient is progressing. advance as tolerated Physical Therapy Plan Next Visit Focus/Plan Next Note Type Treatment Note Next Visit Plan Progress as tolerated.
--- NOTE | 2017-12-06 16:55 | PT.OTN ---
Current Diagnoses Strain of unspecified muscle, fascia and tendon at shoulder and upper arm level, right arm, initial encounter (12/06/17) Sprain of unspecified ligament of right ankle, initial encounter (12/06/17) Physical Therapy Treatment Note PT-OP-A Visit Information Start: 10/31/17 13:18 Freq: Status: Active Protocol: Document 12/06/17 10:36 EA (Rec: 12/06/17 11:07 EA [id number]) Out-Patient Physical Therapy Visit Information Visit Information Visit Type Treatment Note Visit Start Time 09:45 Visit Stop Time 10:30 Total Visit Minutes 45 Visit Number 9 PT-OP-B Current Condition Start: 10/31/17 13:18 Freq: Status: Active Protocol: Document 10/31/17 13:48 EA (Rec: 10/31/17 13:53 EA [id number]) Current Condition History of Current Condition Onset Date 3 years ago Current Complaints Right ankle and shoulder pain History of Current Condition Present c/o right ankle condition strated 3 years ago after/during R knee replacement. Patient reports had pool therapy and use equipment that made ankle to injured; states did not noticed the severity of injury as she was focused with rehabing the knee. Patient then noticed throughout 3 years after surgery that right ankle is not getting better, icing and rest help but kept coming once increased weight bearing activities. A month ago patient prompted to see her doctor referred to PT with for evaluation including right shoulder discomfort. Pt states right shoulder had history of arthroscopic surgery 18 years ago with no formal PT; denies loss of motion and function; states discomfort with wrong extreme movements only. Prior Treatments and Tests Right knee TKA with formal PT (2014) Future Testing and Treatments Planned None at the moment Treatment Goals Patient/Caregiver Goals 1. Be able to walk without increase in symptoms 2. Be able walk on trails with increase strength and stability 3. Decrease morning stiffness. 4. Be able to use right shoulder without discomfort. Prior Functional Status Baseline Function- ADL's Independent Baseline Function- Mobility Independent Current Functional Impairments (Reported) Functional Limitations- ADL's Indep Functional Limitations- Mobility/Gait Inability to sustain more than 20 mins of walking due to increase right ankle symptoms Functional Limitations- Recreation/ Inability to perform trail Hobbies walking or uneven surface walking Personal Factors Other Personal Factors That May Effect None identified barriers to Therapy/Recovery rehab at this time. PT-OP-C Subjective Start: 10/31/17 13:18 Freq: Status: Active Protocol: Document 12/06/17 10:36 EA (Rec: 12/06/17 11:07 EA [id number]) OP-PT Subjective Patient Comments Patient Comments Patient report right ankle pain increased in past few days after 2 miles walk; states same shoes has been using. Patient noted slight swelling but denies putting ice after long activity. PT-OP-D Balance Start: 10/31/17 13:18 Freq: Status: Active Protocol: Document 10/31/17 16:45 EA (Rec: 11/01/17 09:29 EA [id number]) Balance Tests Single Limb Standing Single Limb- Right < 10 seconds Single Limb- Left > 10 secs PT-OP-G Mobility & Gait Start: 10/31/17 13:18 Freq: Status: Active Protocol: Document 10/31/17 16:45 EA (Rec: 11/01/17 09:28 EA [id number]) OP Gait Assessment Gait Deviations General Gait Pattern Antalgic Comments Gait Comments Slight antalgic PT-OP-J Posture/Palpation/Skin Start: 10/31/17 13:18 Freq: Status: Active Protocol: Document 10/31/17 16:45 EA (Rec: 11/01/17 09:28 EA [id number]) Palpation Assessment Location Two Palpation Location right ankle Palpation Details Grade 2 tenderness over right lateral ankle joint and anterolat. One Palpation Location Right shoulder Palpation Findings Tenderness Palpation Details Grade 1 tenderness over right anterolateral shoulder PT-OP-K Range of Motion Start: 10/31/17 13:18 Freq: Status: Active Protocol: Document 10/31/17 16:45 EA (Rec: 11/01/17 09:28 EA [id number]) Shoulder Goniometric Range of Motion Shoulder Measured in Degrees Right Active Shoulder ROM WFL Yes Knee Goniometric Range of Motion Knee Measured in Degrees Right Knee ROM WFL Yes Ankle and Foot Goniometric Range of Motion Ankle and Foot Measured in Degrees Right Active Ankle/Foot ROM WFL Yes Testing Position Supine PT-OP-L Special Tests Start: 10/31/17 13:18 Freq: Status: Active Protocol: Document 10/31/17 16:45 EA (Rec: 11/01/17 07:28 EA [id number]) Special Tests Shoulder Special Tests Yergason's Biceps Test Results + العلي Praful Impingement Test Results + Empty Can Test Results - Belly Press Test Results sensitive Foot/Ankle Special Tests Anterior Draw Test Results - Talor Tilt Test Results + Other Special Tests Special Tests 1. Right shoulder ER with resistance increase pain 2. R Ankle Varus test positive PT-OP-M Strength Start: 10/31/17 13:18 Freq: Status: Active Protocol: Document 10/31/17 16:45 EA (Rec: 11/01/17 09:28 EA [id number]) Shoulder Strength Shoulder Manual Muscle Testing Right Flexion 5 Normal Extension 5 Normal Abduction (C5) 4+ Good+ External Rotation 4 Good Internal Rotation 4 Good Ankle/Foot Strength Ankle and Foot Manual Muscle Testing Right Dorsiflexion (L4) 5 Normal Plantarflexion (S1) 4 Good Inversion 4+ Good+ Eversion (S1) 4- Good- PT-OP-Q Treatments Start: 10/31/17 13:18 Freq: Status: Active Protocol: Document 12/06/17 10:36 EA (Rec: 12/06/17 11:07 EA [id number]) Manual Therapy Treatment Soft Tissue Mobilization 1 Body Location right talofib and calcaneofib Mobilization Type Cross-Friction Sustained Pressure Intensity/Depth Moderate Joint Mobilizations 1 Joint distal Tib/fib jnt, TC jnt Direction post/sup Grade II Body Position Sitting Comments long sitting PT-OP-R Modalities Start: 10/31/17 13:18 Freq: Status: Active Protocol: Document 12/06/17 10:36 EA (Rec: 12/06/17 11:07 EA [id number]) Electric Stimulation Electric Stimulation Interferential Current (IFC) Body Location right peroneals Duration (Minutes) 15 Combined With Heat/Cold Cold Pack Ultrasound Therapy Treatment Right Lateral Ankle Treatment Duration (minutes) 5 Patient Position Supine Frequency Setting (mHz) 3 Intensity Setting (w/cm2) 1.0 PT-OP-T Assessment and Plan Start: 10/31/17 13:18 Freq: Status: Active Protocol: Document 12/06/17 10:36 EA (Rec: 12/06/17 11:07 EA [id number]) Physical Therapy Assessment Assessment Summary Assessment No active inflammation noted. No gait alteration noted. Patient tolerated treatment. Recommends to use other pair of shoes for walking to evaluate shoe's comfort. Physical Therapy Plan Next Visit Focus/Plan Next Note Type Treatment Note Next Visit Plan Progress as tolerated.
--- NOTE | 2017-12-18 07:23 | PT.OTN ---
Current Diagnoses Strain of unspecified muscle, fascia and tendon at shoulder and upper arm level, right arm, initial encounter (12/13/17) Sprain of unspecified ligament of right ankle, initial encounter (12/13/17) Physical Therapy Treatment Note PT-OP-A Visit Information Start: 10/31/17 13:18 Freq: Status: Active Protocol: Document 12/13/17 11:07 EA (Rec: 12/13/17 12:24 EA [id number]) Out-Patient Physical Therapy Visit Information Visit Information Visit Type Treatment Note Visit Start Time 09:45 Visit Stop Time 10:30 Total Visit Minutes 50 Visit Number 10 PT-OP-B Current Condition Start: 10/31/17 13:18 Freq: Status: Active Protocol: Document 10/31/17 13:48 EA (Rec: 10/31/17 13:53 EA [id number]) Current Condition History of Current Condition Onset Date 3 years ago Current Complaints Right ankle and shoulder pain History of Current Condition Present c/o right ankle condition strated 3 years ago after/during R knee replacement. Patient reports had pool therapy and use equipment that made ankle to injured; states did not noticed the severity of injury as she was focused with rehabing the knee. Patient then noticed throughout 3 years after surgery that right ankle is not getting better, icing and rest help but kept coming once increased weight bearing activities. A month ago patient prompted to see her doctor referred to PT with for evaluation including right shoulder discomfort. Pt states right shoulder had history of arthroscopic surgery 18 years ago with no formal PT; denies loss of motion and function; states discomfort with wrong extreme movements only. Prior Treatments and Tests Right knee TKA with formal PT (2014) Future Testing and Treatments Planned None at the moment Treatment Goals Patient/Caregiver Goals 1. Be able to walk without increase in symptoms 2. Be able walk on trails with increase strength and stability 3. Decrease morning stiffness. 4. Be able to use right shoulder without discomfort. Prior Functional Status Baseline Function- ADL's Independent Baseline Function- Mobility Independent Current Functional Impairments (Reported) Functional Limitations- ADL's Indep Functional Limitations- Mobility/Gait Inability to sustain more than 20 mins of walking due to increase right ankle symptoms Functional Limitations- Recreation/ Inability to perform trail Hobbies walking or uneven surface walking Personal Factors Other Personal Factors That May Effect None identified barriers to Therapy/Recovery rehab at this time. PT-OP-C Subjective Start: 10/31/17 13:18 Freq: Status: Active Protocol: Document 12/13/17 11:07 EA (Rec: 12/13/17 12:24 EA [id number]) OP-PT Subjective Patient Comments Patient Comments Pt reports that right ankle is getting better in the past 2 weeks; denies aggravation after more than 30 mins of flat ground hike; states that she is good to discharge at this time and will call back if requires the services again . Patient also brought her new shoes to assess if it will work for her foot. Patient Reported Progress Improved Patient Questionnaires Foot & Ankle Ability Measure- ADL and Sports FAAM-ADL Impairment 1 to 19% Impaired (Score 67-83 ) PT-OP-D Balance Start: 10/31/17 13:18 Freq: Status: Active Protocol: Document 10/31/17 16:45 EA (Rec: 11/01/17 09:29 EA [id number]) Balance Tests Single Limb Standing Single Limb- Right < 10 seconds Single Limb- Left > 10 secs PT-OP-G Mobility & Gait Start: 10/31/17 13:18 Freq: Status: Active Protocol: Document 10/31/17 16:45 EA (Rec: 11/01/17 09:28 EA [id number]) OP Gait Assessment Gait Deviations General Gait Pattern Antalgic Comments Gait Comments Slight antalgic PT-OP-J Posture/Palpation/Skin Start: 10/31/17 13:18 Freq: Status: Active Protocol: Document 10/31/17 16:45 EA (Rec: 11/01/17 09:28 EA [id number]) Palpation Assessment Location Two Palpation Location right ankle Palpation Details Grade 2 tenderness over right lateral ankle joint and anterolat. One Palpation Location Right shoulder Palpation Findings Tenderness Palpation Details Grade 1 tenderness over right anterolateral shoulder PT-OP-K Range of Motion Start: 10/31/17 13:18 Freq: Status: Active Protocol: Document 10/31/17 16:45 EA (Rec: 11/01/17 09:28 EA [id number]) Shoulder Goniometric Range of Motion Shoulder Measured in Degrees Right Active Shoulder ROM WFL Yes Knee Goniometric Range of Motion Knee Measured in Degrees Right Knee ROM WFL Yes Ankle and Foot Goniometric Range of Motion Ankle and Foot Measured in Degrees Right Active Ankle/Foot ROM WFL Yes Testing Position Supine PT-OP-L Special Tests Start: 10/31/17 13:18 Freq: Status: Active Protocol: Document 10/31/17 16:45 EA (Rec: 11/01/17 07:28 EA [id number]) Special Tests Shoulder Special Tests Yergadaniela's Biceps Test Results + العلي Praful Impingement Test Results + Empty Can Test Results - Belly Press Test Results sensitive Foot/Ankle Special Tests Anterior Draw Test Results - Talor Tilt Test Results + Other Special Tests Special Tests 1. Right shoulder ER with resistance increase pain 2. R Ankle Varus test positive PT-OP-M Strength Start: 10/31/17 13:18 Freq: Status: Active Protocol: Document 10/31/17 16:45 EA (Rec: 11/01/17 09:28 EA [id number]) Shoulder Strength Shoulder Manual Muscle Testing Right Flexion 5 Normal Extension 5 Normal Abduction (C5) 4+ Good+ External Rotation 4 Good Internal Rotation 4 Good Ankle/Foot Strength Ankle and Foot Manual Muscle Testing Right Dorsiflexion (L4) 5 Normal Plantarflexion (S1) 4 Good Inversion 4+ Good+ Eversion (S1) 4- Good- PT-OP-Q Treatments Start: 10/31/17 13:18 Freq: Status: Active Protocol: Document 12/13/17 11:07 EA (Rec: 12/13/17 12:24 EA [id number]) Cardio Equipment Recumbent Stepper (Sci-Fit) Duration (Minutes) 5 Seat Position 7 Other warm up Gym Equipment Shuttle Recovery Unilateral Squats Resistance 50 Shuttle Recovery Platform Stable Reps/Time x 15 x 2 sets Therapeutic Exercises Sitting Exercises 1 Sitting Exercise Name R ankle Eversion/DF Resistance RTB/GTB Reps/Minutes 10 reps Standing Exercises 3 Standing Exercise Name BUSO step up/down FWD and SWD Comments W/ single to no hand support 2 Standing Exercise Name Single stance on blue foam; Reps/Minutes x 10 SH x 3 1 Standing Exercise Name calves stretch Reps/Minutes x15 SH x 2 Manual Therapy Treatment Soft Tissue Mobilization 1 Body Location right talofib and calcaneofib Mobilization Type Cross-Friction Sustained Pressure Intensity/Depth Moderate Joint Mobilizations 1 Joint distal Tib/fib jnt, TC jnt Direction post/sup Grade II Body Position Sitting Comments long sitting PT-OP-R Modalities Start: 10/31/17 13:18 Freq: Status: Active Protocol: Document 12/13/17 11:07 EA (Rec: 12/13/17 12:24 EA [id number]) Electric Stimulation Electric Stimulation Interferential Current (IFC) Body Location right peroneals Duration (Minutes) 15 Combined With Heat/Cold Cold Pack PT-OP-T Assessment and Plan Start: 10/31/17 13:18 Freq: Status: Active Protocol: Document 12/13/17 11:07 EA (Rec: 12/13/17 12:24 EA [id number]) Physical Therapy Assessment Goals Four Impairment R Shoulder discomfort with overhead movement and shoulder rotation Fdc Goal (LTG) Patient will have no shoulder discomfort in all overhead movement. Three Impairment Increased ankle soreness and swelling after 20 mins of walking Tobacco Feeder Catcher Goal (LTG) Patient have no c/o of increase soreness and swelling after 20 mins of walk LTG Duration reached Two Impairment Deacrease calf functional strength (3 single calf raises /standing) Fdc Goal (LTG) Patient perform 12 single calf raises for functional gait. LTG Duration goals reached One Impairment Swelling to right ankle Fdc Goal (LTG) decrease ankle measurement by .5 inch LTG Duration Goals reached Assessment Summary Assessment Patient tolerated treatment with no signs of discomfort. Patient to discharge today due to reaching goals. Physical Therapy Plan Next Visit Focus/Plan Next Visit Plan Patient is discharge today.
== END 2017-12-20 12:12 ==
LOC: PHYS 09:45
PROVIDERS: Family Provider Family Medicine; PCP Family Medicine; Visit Provider Family Medicine
DX: S93.401A Sprain of unspecified ligament of right ankle, initial encounter (principal); S46.911A Strain of unspecified muscle, fascia and tendon at shoulder and upper arm level, right arm, initial encounter
CPT/HCPCS: 97014; 97110; 97140; 97162; 97535; G0283

== ENCOUNTER → 2018-06-11 10:27 | Outpatient (CLI) | payer MEDICARE, OTHER, SELFPAY ==
[2018-06-11 11:27] LABS: Add Manual Diff / Slide Review NO; Basophils Absolute Auto 0 /uL (0-100); Eosinophils Absolute Auto 100 /uL (0-450); Eosinophils Percent Auto 2.7 % (2-4); Hematocrit 43.7 % (36-46); Hemoglobin 14.3 g/dL (12.0-16.0); Lymphocytes Absolute Auto 1400 /uL (1100-4500); Lymphocytes Percent Auto 33.3 % (25-40); Mean Corpuscular HGB Conc 32.8 % (30-36); Mean Corpuscular Volume 82.5 fL (80-100); Monocytes Absolute Auto 500 /uL (0-900); Neutrophils Absolute Auto 2100 /uL (1500-7000); Platelet Count 188 X10^3/uL (150-400); Red Cell Distribution Width 14.2 % (11.6-14.8); White Blood Cell Count 4.2 X10^3/uL (4.5-11.0)
[2018-06-11 11:47] LABS: Alanine Aminotransferase 37 IU/L (9-52); Albumin 4.4 g/dL (3.5-5.0); Albumin Globulin Ratio 1.4 (1.0-2.8); Alkaline Phosphatase 75 U/L (38-126); Aspartate Aminotransferase 26 IU/L (14-36); BUN Creatinine Ratio 17.8 (6-22); Bilirubin Total 0.5 mg/dL (0.2-1.3); Blood Urea Nitrogen 16 mg/dL (7-17); Calcium 9.5 mg/dL (8.4-10.2); Carbon Dioxide 29 mmol/L (22-32); Chloride 103 mmol/L (98-107); Cholesterol 188 mg/dL (140-199); Estimated Glomerular Filt Rate > 60.0 mL/min (>60); Globulin 3.2 g/dL (1.7-4.1); Glucose 97 mg/dL (80-110); HDL Cholesterol 63 mg/dL (40-60); HEMOLYSIS < 15 (0-50); LDL Cholesterol Calculated 105 mg/dL (<100); Potassium 4.7 mmol/L (3.4-5.1); Sodium 140 mmol/L (137-145); Total Protein 7.6 g/dL (6.3-8.2); Triglycerides 101 mg/dL (35-150)
[2018-06-11 12:12] LABS: Thyroid Stimulating Hormone 2.29 uIU/mL (0.47-4.68)
[2018-06-11 12:21] LABS: Appearance Urine UA CLEAR; Bilirubin Urine UA NEGATIVE (NEGATIVE); Color Urine UA YELLOW; Glucose Urine UA NEGATIVE (Negative); Ketones Urine UA NEGATIVE (NEGATIVE); Leukocyte Esterase Urine UA TRACE (NEGATIVE); Nitrite Urine UA NEGATIVE (Negative); Occult Blood Urine UA NEGATIVE (Negative); Protein Urine UA NEGATIVE (Negative); Specific Gravity Urine UA >=1.030 (1.000-1.035); Urobilinogen Urine UA 0.2 E.U./dL (0.2)
[2018-06-11 12:23] LABS: RBC Urine None Seen (0-5/HPF)
[2018-06-11 12:27] LABS: Bacteria Urine Few (2-10); Culture Indicated Urine Specimen Cultured; Squamous Epithelial Cell Urine 0-1 /HPF; WBC Urine 1-5/HPF (0-5/HPF)
== END ==
PROVIDERS: PCP Family Medicine; Visit Provider Family Medicine
DX: Z13.220 Encounter for screening for lipoid disorders (principal); Z13.29 Encounter for screening for other suspected endocrine disorder; Z51.81 Encounter for therapeutic drug level monitoring
CPT/HCPCS: 36415; 80053; 80061; 81003; 81015; 84443; 85025; 87086

== ENCOUNTER → 2018-06-12 12:44 | Outpatient (CLI) | payer MEDICARE, OTHER, SELFPAY | PROVIDERS: PCP Family Medicine; Visit Provider Family Medicine | DX: M85.852 Other specified disorders of bone density and structure, left thigh (principal); Z78.0 Asymptomatic menopausal state | CPT/HCPCS: 77080 ==

== ENCOUNTER → 2018-08-03 15:19 | Outpatient (CLI) | payer MEDICARE, OTHER, SELFPAY ==
--- NOTE | 2018-08-03 15:21 | DI.MG.S_ITS ---
BILATERAL DIGITAL SCREENING MAMMOGRAM 3D/2D WITH CAD: 08/03/2018 CLINICAL: Routine screening. Comparison is made to exams dated: 08/26/2015 mammogram and 08/03/2015 mammogram - [facility]. The tissue of both breasts is heterogeneously dense. This may lower the sensitivity of mammography. Current study was also evaluated with a Computer Aided Detection (CAD) system. No significant masses, calcifications, or other findings are seen in either breast. There has been no significant interval change. IMPRESSION: NEGATIVE There is no mammographic evidence of malignancy. A 1 year screening mammogram is recommended. This exam was interpreted at Station ID: [id number]. NOTE: For mammograms, a report in lay terms will be sent to the patient. Approximately 15% of breast malignancies will not be visualized mammographically. In the management of a palpable breast mass, a negative mammogram must not discourage biopsy of a clinically suspicious lesion. Electronically Signed By: Blanca willett/carissa:08/03/2018 16:09:31 letter sent: Normal Exam ACR BI-RADS Category 1: Negative 3341F
== END ==
PROVIDERS: Family Provider Naturopath; PCP Family Medicine; Visit Provider Family Medicine
DX: Z12.31 Encounter for screening mammogram for malignant neoplasm of breast (principal)
CPT/HCPCS: 77063; 77067

== ENCOUNTER → 2019-09-03 17:14 | Outpatient (CLI) | payer MEDICARE, OTHER, SELFPAY ==
[2019-09-03 18:04] LABS: Add Manual Diff / Slide Review NO; Basophils Absolute Auto 0 /uL (0-100); Basophils Percent Auto 0.6 % (0-2); Eosinophils Absolute Auto 100 /uL (0-450); Eosinophils Percent Auto 1.7 % (2-4); Hematocrit 42.5 % (36-46); Hemoglobin 14.2 g/dL (12.0-16.0); Lymphocytes Absolute Auto 1400 /uL (1100-4500); Lymphocytes Percent Auto 24.2 % (25-40); Mean Corpuscular HGB Conc 33.4 % (30-36); Mean Corpuscular Hemoglobin 27.7 PG (26-34); Mean Corpuscular Volume 83.1 fL (80-100); Monocytes Absolute Auto 700 /uL (0-900); Monocytes Percent Auto 11.2 % (3-14); Neutrophils Absolute Auto 3700 /uL (1500-7000); Neutrophils Percent Auto 62.3 % (50-75); Platelet Count 179 X10^3/uL (150-400); Red Blood Cell Count 5.11 X10^6/uL (4.0-5.2); Red Cell Distribution Width 14.3 % (11.6-14.8); White Blood Cell Count 5.9 X10^3/uL (4.5-11.0)
[2019-09-03 18:23] LABS: C-Reactive Protein Quant < 0.5 mg/dL (<1.0)
[2019-09-03 18:32] LABS: Erythrocyte Sedimentation Rate 6 MM/HR (0-20)
== END ==
PROVIDERS: Family Provider Naturopath; PCP Family Medicine; Referring Provider Family Medicine; Visit Provider Family Medicine
DX: R51 Headache (principal)
CPT/HCPCS: 36415; 85025; 85651; 86140

== ENCOUNTER → 2019-10-15 16:50 | Outpatient (CLI) | payer MEDICARE, OTHER, SELFPAY ==
--- NOTE | 2019-10-15 16:53 | DI.MG.S_ITS ---
BILATERAL DIGITAL SCREENING MAMMOGRAM 3D/2D WITH CAD: 10/15/2019 CLINICAL: Routine screening. Comparison is made to exams dated: 08/03/2018 mammogram - [facility], 08/26/2015 mammogram, and 08/03/2015 mammogram - [facility]. The tissue of both breasts is heterogeneously dense. This may lower the sensitivity of mammography. Current study was also evaluated with a Computer Aided Detection (CAD) system. No significant masses, calcifications, or other findings are seen in either breast. There has been no significant interval change. IMPRESSION: NEGATIVE There is no mammographic evidence of malignancy. A 1 year screening mammogram is recommended. This exam was interpreted at Station ID: [id number]. NOTE: For mammograms, a report in lay terms will be sent to the patient. Approximately 15% of breast malignancies will not be visualized mammographically. In the management of a palpable breast mass, a negative mammogram must not discourage biopsy of a clinically suspicious lesion. Electronically Signed By: Yuki bustamante/carissa:10/16/2019 09:16:15 letter sent: Normal Exam ACR BI-RADS Category 1: Negative 3341F
== END ==
PROVIDERS: Family Provider Naturopath; PCP Family Medicine; Referring Provider Family Medicine; Visit Provider Family Medicine
DX: Z12.31 Encounter for screening mammogram for malignant neoplasm of breast (principal)
CPT/HCPCS: 77063; 77067

== ENCOUNTER → 2020-05-01 08:11 | Outpatient (CLI) | payer MEDICARE, OTHER, SELFPAY ==
[2020-05-01] MEDS: COVID-19 VACC #1, MRNA(MOD) 100 MCG/0.5 ML VIAL IM (08:14)
== END ==
PROVIDERS: Family Provider Naturopath; PCP Family Medicine; Visit Provider Internal Medicine
DX: Z23 Encounter for immunization (principal)
CPT/HCPCS: 0011A; 91301

== ENCOUNTER → 2020-05-29 08:05 | Outpatient (CLI) | payer MEDICARE, OTHER, SELFPAY ==
[2020-05-29] MEDS: COVID-19 VACC #2, MRNA(MOD) 100 MCG/0.5 ML VIAL IM (08:14)
== END ==
PROVIDERS: Family Provider Naturopath; PCP Family Medicine; Visit Provider Internal Medicine
DX: Z23 Encounter for immunization (principal)
CPT/HCPCS: 0012A; 91301

== ENCOUNTER → 2020-07-18 10:48 | Outpatient (CLI) | payer MEDICARE, OTHER, SELFPAY ==
[2020-07-18 11:39] LABS: Add Manual Diff / Slide Review NO; Basophils Absolute Auto 0 /uL (0-100); Basophils Percent Auto 0.9 % (0-2); Eosinophils Absolute Auto 100 /uL (0-450); Eosinophils Percent Auto 2.2 % (2-4); Hematocrit 42.4 % (36-46); Hemoglobin 13.5 g/dL (12.0-16.0); Lymphocytes Absolute Auto 1500 /uL (1100-4500); Lymphocytes Percent Auto 32.3 % (25-40); Mean Corpuscular HGB Conc 31.8 % (30-36); Mean Corpuscular Hemoglobin 26.7 PG (26-34); Monocytes Absolute Auto 500 /uL (0-900); Monocytes Percent Auto 10.5 % (3-14); Neutrophils Absolute Auto 2600 /uL (1500-7000); Neutrophils Percent Auto 54.1 % (50-75); Platelet Count 170 X10^3/uL (150-400); Red Blood Cell Count 5.05 X10^6/uL (4.0-5.2); Red Cell Distribution Width 14.1 % (11.6-14.8); White Blood Cell Count 4.8 X10^3/uL (4.5-11.0)
[2020-07-18 12:10] LABS: BUN Creatinine Ratio 22.4 (6-22); Blood Urea Nitrogen 17 mg/dL (7-17); Calcium 9.7 mg/dL (8.4-10.2); Carbon Dioxide 28 mmol/L (22-32); Chloride 106 mmol/L (98-107); Cholesterol 165 mg/dL (140-199); Estimated Glomerular Filt Rate > 60.0 mL/min (>60); Glucose 98 mg/dL (80-110); HDL Cholesterol 70 mg/dL (40-60); HEMOLYSIS < 15 (0-50); LDL Cholesterol Calculated 79 mg/dL (<100); Potassium 4.7 mmol/L (3.4-5.1); Sodium 139 mmol/L (137-145); Triglycerides 81 mg/dL (35-150)
[2020-07-18 12:38] LABS: TSH w/ Reflex to FT4 2.71 uIU/mL (0.47-4.68)
== END ==
PROVIDERS: Family Provider Naturopath; PCP Family Medicine; Referring Provider Family Medicine; Visit Provider Family Medicine
DX: D12.7 Benign neoplasm of rectosigmoid junction (principal); D12.2 Benign neoplasm of ascending colon; K21.9 Gastro-esophageal reflux disease without esophagitis; I51.7 Cardiomegaly; K57.30 Diverticulosis of large intestine without perforation or abscess without bleeding; Z13.220 Encounter for screening for lipoid disorders; G44.229 Chronic tension-type headache, not intractable; R51.9 Headache, unspecified; Z13.29 Encounter for screening for other suspected endocrine disorder
CPT/HCPCS: 36415; 80048; 80061; 84443; 85025

== ENCOUNTER → 2020-10-17 08:18 | Outpatient (CLI) | payer MEDICARE, OTHER, SELFPAY ==
--- NOTE | 2020-10-17 08:20 | DI.MG.S_ITS ---
BILATERAL DIGITAL SCREENING MAMMOGRAM 3D/2D WITH CAD: 10/17/2020 CLINICAL: Routine screening. Comparison is made to exams dated: 10/15/2019 mammogram, 08/03/2018 mammogram - , 08/26/2015 mammogram, and 08/03/2015 mammogram - [facility]. The tissue of both breasts is heterogeneously dense. This may lower the sensitivity of mammography. Current study was also evaluated with a Computer Aided Detection (CAD) system. No significant masses, calcifications, or other findings are seen in either breast. There has been no significant interval change. IMPRESSION: NEGATIVE There is no mammographic evidence of malignancy. A 1 year screening mammogram is recommended. This exam was interpreted at Station ID: [id number]. NOTE: For mammograms, a report in lay terms will be sent to the patient. Approximately 15% of breast malignancies will not be visualized mammographically. In the management of a palpable breast mass, a negative mammogram must not discourage biopsy of a clinically suspicious lesion. Electronically Signed By: Nicolas ramirez/carissa:10/19/2020 07:46:19 copy to: [employer] letter sent: Normal Exam ACR BI-RADS Category 1: Negative 3341F
== END ==
PROVIDERS: Family Provider Naturopath; PCP Family Medicine; Referring Provider Family Medicine; Visit Provider Family Medicine
DX: Z12.31 Encounter for screening mammogram for malignant neoplasm of breast (principal)
CPT/HCPCS: 77063; 77067

== ENCOUNTER → 2021-02-05 10:22 | Outpatient (CLI) | payer MEDICARE, OTHER, SELFPAY ==
[2021-02-05] MEDS: COVID-19 VACC #3, MRNA(MOD) 50 MCG/0.25 ML VIAL IM (10:26)
== END ==
PROVIDERS: Family Provider Naturopath; PCP Family Medicine; Visit Provider Internal Medicine
DX: Z23 Encounter for immunization (principal)
CPT/HCPCS: 0013A; 91301

== ENCOUNTER → 2021-10-19 15:41 | Outpatient (CLI) | payer MEDICARE, OTHER, SELFPAY ==
--- NOTE | 2021-10-19 | DI.MG.S_ITS ---
BILATERAL DIGITAL SCREENING MAMMOGRAM 3D/2D WITH CAD: 10/19/2021 CLINICAL: Routine screening. Comparison is made to exams dated: 10/15/2019 mammogram, 08/03/2018 mammogram - [facility], 08/26/2015 mammogram - [facility], and 10/17/2020 mammogram - [facility]. The tissue of both breasts is heterogeneously dense. This may lower the sensitivity of mammography. Current study was also evaluated with a Computer Aided Detection (CAD) system. No significant masses, calcifications, or other findings are seen in either breast. There has been no significant interval change. IMPRESSION: NEGATIVE There is no mammographic evidence of malignancy. A 1 year screening mammogram is recommended. Based on the Tyrer Cuzick model (a risk assessment model) the patient's lifetime risk is 7.2% and her 10 year risk is 5.9%. According to the ACR, ACS, and NCCN guidelines, an annual breast MRI exam along with mammogram is recommended if the patient's lifetime risk is 20% or greater. This exam was interpreted at Station ID: [id number]. NOTE: For mammograms, a report in lay terms will be sent to the patient. Approximately 15% of breast malignancies will not be visualized mammographically. In the management of a palpable breast mass, a negative mammogram must not discourage biopsy of a clinically suspicious lesion. Electronically Signed By: Nicolas ramirez/carissa:10/20/2021 13:09:35 copy to: [employer] letter sent: Normal Exam ACR BI-RADS Category 1: Negative 3341F
== END ==
PROVIDERS: Family Provider Naturopath; PCP Family Medicine; Referring Provider Family Medicine; Visit Provider Family Medicine
DX: Z12.31 Encounter for screening mammogram for malignant neoplasm of breast (principal)
CPT/HCPCS: 77063; 77067

== ENCOUNTER → 2021-11-04 09:05 | Outpatient (CLI) | payer MEDICARE, OTHER, SELFPAY ==
[2021-11-04 10:17] LABS: Add Manual Diff / Slide Review NO; Basophils Absolute Auto 0 /uL (0-100); Eosinophils Absolute Auto 100 /uL (0-450); Eosinophils Percent Auto 2.7 % (2-4); Hematocrit 37.7 % (36-46); Hemoglobin 11.8 g/dL (12.0-16.0); Lymphocytes Absolute Auto 1400 /uL (1100-4500); Lymphocytes Percent Auto 30.1 % (25-40); Mean Corpuscular HGB Conc 31.2 % (30-36); Mean Corpuscular Hemoglobin 22.5 PG (26-34); Mean Corpuscular Volume 72.3 fL (80-100); Monocytes Absolute Auto 600 /uL (0-900); Monocytes Percent Auto 12.2 % (3-14); Neutrophils Absolute Auto 2500 /uL (1500-7000); Platelet Count 213 X10^3/uL (150-400); Red Blood Cell Count 5.22 X10^6/uL (4.0-5.2); White Blood Cell Count 4.7 X10^3/uL (4.5-11.0)
[2021-11-04 10:43] LABS: Alanine Aminotransferase 19 IU/L (<35); Albumin 4.3 g/dL (3.5-5.0); Albumin Globulin Ratio 1.5 (1.0-2.8); Alkaline Phosphatase 86 U/L (38-126); Aspartate Aminotransferase 25 IU/L (14-36); BUN Creatinine Ratio 14.9 (6-22); Bilirubin Total 0.3 mg/dL (0.2-1.3); Blood Urea Nitrogen 13 mg/dL (7-17); Calcium 9.3 mg/dL (8.4-10.2); Carbon Dioxide 29 mmol/L (22-32); Chloride 105 mmol/L (98-107); Estimated Glomerular Filt Rate > 60 mL/min (>60); Globulin 2.9 g/dL (1.7-4.1); HEMOLYSIS < 15 (0-50); Potassium 4.9 mmol/L (3.4-5.1); Sodium 140 mmol/L (137-145); Total Protein 7.2 g/dL (6.3-8.2)
[2021-11-04 10:49] LABS: Glucose 100 mg/dL (80-110)
[2021-11-04 10:59] LABS: Free T3, Triiodothyronine Free 3.77 pg/mL (2.77-5.27)
[2021-11-04 11:13] LABS: Thyroid Stimulating Hormone 2.09 uIU/mL (0.47-4.68)
== END ==
PROVIDERS: Family Provider Naturopath; PCP Family Medicine; Referring Provider Family Medicine; Visit Provider Family Medicine
DX: D64.9 Anemia, unspecified (principal); R53.83 Other fatigue
CPT/HCPCS: 36415; 80053; 84439; 84443; 84481; 85025

== ENCOUNTER → 2022-12-21 07:47 | Outpatient (CLI) | payer MEDICARE, OTHER, SELFPAY ==
--- NOTE | 2022-12-21 | DI.MG.S_ITS ---
BILATERAL DIGITAL SCREENING MAMMOGRAM 3D/2D WITH CAD: 12/21/2022 CLINICAL: Routine screening. Comparison is made to exams dated: 10/19/2021 mammogram, 10/17/2020 mammogram, and 10/15/2019 mammogram - [facility]. Both breasts are heterogeneously dense, which may obscure small masses (category c / 51-75% glandular tissue). Current study was also evaluated with a Computer Aided Detection (CAD) system. No significant masses, calcifications, or other findings are seen in either breast. There has been no significant interval change. IMPRESSION: NEGATIVE There is no mammographic evidence of malignancy. A 1 year screening mammogram is recommended. Based on the Tyrer Cuzick model (a risk assessment model) the patient's lifetime risk is 6.7% and her 10 year risk is 6.1%. According to the ACR, ACS, and NCCN guidelines, an annual breast MRI exam along with mammogram is recommended if the patient's lifetime risk is 20% or greater. This exam was interpreted at Station ID: [id number]. NOTE: For mammograms, a report in lay terms will be sent to the patient. Approximately 15% of breast malignancies will not be visualized mammographically. In the management of a palpable breast mass, a negative mammogram must not discourage biopsy of a clinically suspicious lesion. Electronically Signed By: Ish thurman/carissa:12/21/2022 09:10:28 copy to: [employer] letter sent: Normal Exam ACR BI-RADS Category 1: Negative 3341F
== END ==
PROVIDERS: Family Provider Naturopath; PCP Family Medicine; Referring Provider Family Medicine; Visit Provider Family Medicine
DX: Z12.31 Encounter for screening mammogram for malignant neoplasm of breast (principal)
CPT/HCPCS: 77063; 77067

== ENCOUNTER → 2023-01-04 10:15 | Outpatient (CLI) | payer MEDICARE, OTHER, SELFPAY ==
[2023-01-04 11:01] LABS: Hematocrit 28.8 % (36-46); Hemoglobin 9.6 g/dL (12.0-16.0); Mean Corpuscular HGB Conc 33.4 % (30-36); Mean Corpuscular Volume 86.8 fL (80-100); Platelet Count 143 X10^3/uL (150-400); Red Blood Cell Count 3.32 X10^6/uL (4.0-5.2)
[2023-01-04 11:09] LABS: Add Manual Diff / Slide Review YES
[2023-01-04 11:13] LABS: White Blood Cell Count 1.6 X10^3/uL (4.5-11.0)
[2023-01-04 11:32] LABS: Anisocytosis 1+; Neutrophils Absolute Manual 672 /uL (3000-5900); Total Cells Counted 50
== END ==
PROVIDERS: Family Provider Naturopath; PCP Family Medicine; Referring Provider Internal Medicine Hematology & Oncology; Visit Provider Internal Medicine Hematology & Oncology
DX: Z51.11 Encounter for antineoplastic chemotherapy (principal); Z51.12 Encounter for antineoplastic immunotherapy
CPT/HCPCS: 36415; 85007; 85025

== ENCOUNTER 2023-08-17 19:06 | Inpatient (IN) | payer MEDICARE, OTHER, SELFPAY ==
[2023-08-17] VITALS (9 sets, daily range): BP systolic 109–143; BP diastolic 58–73; PULSE 108–134; RESP 17–30; TEMP 38.1–38.2; O2SAT 92–93; BMI 23.2
--- NOTE | 2023-08-17 19:19 | DI.RAD.S_ITS ---
PROCEDURE: XR CHEST 1V INDICATIONS: suspected sepsis TECHNIQUE: One view of the chest was acquired. COMPARISON: [facility], CT, CT CHEST ABDOMEN PELVIS WITH CONTRAST, 07/31/2023, 10:38. FINDINGS: Surgical changes and devices: Right-sided port with the catheter tip at the lower 3rd of the SVC.. Lungs and pleura: Lungs are clear. No pleural effusions or pneumothorax. Mediastinum: Mediastinal contours appear normal. Heart size is normal. Bones and chest wall: No suspicious bony lesions. Overlying soft tissues appear unremarkable. IMPRESSION: No acute cardiopulmonary abnormality is seen. Dictated by: Nicolas Thacker M.D. on 08/17/2023 at 20:29 Approved by: Nicolas Thacker M.D. on 08/17/2023 at 20:29
--- NOTE | 2023-08-17 19:44 | PC.NURSE ---
patient 85% on RA with SOB. placed on 3L O2 NC. Patient up to 92%
[2023-08-17 19:45] LABS: Add Manual Diff / Slide Review NO; Basophils Absolute Auto 0 /uL (0-100); Basophils Percent Auto 0.3 % (0-2); Eosinophils Absolute Auto 0 /uL (0-450); Eosinophils Percent Auto 0.4 % (2-4); Hematocrit 42.5 % (36-46); Hemoglobin 13.8 g/dL (12.0-16.0); Lymphocytes Absolute Auto 400 /uL (1100-4500); Lymphocytes Percent Auto 8.6 % (25-40); Mean Corpuscular HGB Conc 32.4 % (30-36); Mean Corpuscular Hemoglobin 27.8 PG (26-34); Mean Corpuscular Volume 85.6 fL (80-100); Monocytes Absolute Auto 400 /uL (0-900); Monocytes Percent Auto 7.6 % (3-14); Neutrophils Absolute Auto 4200 /uL (1500-7000); Neutrophils Percent Auto 83.1 % (50-75); Platelet Count 137 X10^3/uL (150-400); Prothrombin Time 11.8 SECONDS (9.4-12.5); Red Blood Cell Count 4.96 X10^6/uL (4.0-5.2); Red Cell Distribution Width 17.2 % (11.6-14.8)
[2023-08-17 19:47] LABS: PTT Partial Thromboplastin Tim 34 SECONDS (25.1-36.5)
[2023-08-17 19:48] LABS: Lactate (Lactic Acid) 1.3 mmol/L (0.7-2.1)
[2023-08-17 19:49] LABS: Alanine Aminotransferase 23 IU/L (<35); Albumin 4.4 g/dL (3.5-5.0); Albumin Globulin Ratio 1.4 (1.0-2.8); Alkaline Phosphatase 100 U/L (38-126); Aspartate Aminotransferase 36 IU/L (14-36); BUN Creatinine Ratio 12.6 (6-22); Bilirubin Total 0.6 mg/dL (0.2-1.3); Blood Urea Nitrogen 14 mg/dL (7-17); Calcium 9.2 mg/dL (8.4-10.2); Carbon Dioxide 26 mmol/L (22-32); Chloride 102 mmol/L (98-107); Estimated Glomerular Filt Rate 52 mL/min (>60); Globulin 3.2 g/dL (1.7-4.1); Glucose 119 mg/dL (80-110); HEMOLYSIS < 15 (0-50); Lipase 93 U/L (23-300); Potassium 4.3 mmol/L (3.4-5.1); Sodium 134 mmol/L (137-145); Total Protein 7.6 g/dL (6.3-8.2)
[2023-08-17] MEDS: SODIUM CHLORIDE 0.9% 1,000 ML 1000 ML IV (20:09)
[2023-08-17 20:52] LABS: Adenovirus Not Detected (Not Detect); B. parapertussis Not Detected (Not Detecte); Bordetella pertussis Not Detected (Not Detect); Chlamydophila pneumoniae Not Detected (Not Detect); Coronavirus 229E Not Detected (Not Detect); Coronavirus HKU1 Not Detected (Not Detect); Coronavirus NL 63 Not Detected (Not Detect); Coronavirus OC43 Not Detected (Not Detect); Human Metapneumovirus Detected (Not Detect); Human Rhinovirus/Enterovirus Not Detected (Not Detect); Influenza A Not Detected (Not Detect); Influenza B Not Detected (Not Detect); Mycoplasma pneumoniae Not Detected (Not Detect); Parainfluenza Virus 1 Not Detected (Not Detect); Parainfluenza Virus 2 Not Detected (Not Detect); Parainfluenza Virus 3 Not Detected (Not Detect); Parainfluenza Virus 4 Not Detected (Not Detect); Respiratory Syncytial Virus Not Detected (Not Detect); SARS- CoV-2 Not Detected (Not Detecte)
--- NOTE | 2023-08-17 21:10 | ED.GENADULT ---
HPI - General Adult General Chief complaint: Shortness of Breath/Dyspnea Stated complaint: breathing issues, sent by [facility] Time Seen by Provider: 08/17/23 21:08 Source: patient Mode of arrival: Ambulatory History of Present Illness HPI narrative: 73-year-old female with history of stage IV esophageal cancer, ongoing palliative chemotherapy via right Port-A-Cath, not currently followed by palliative care provider or on hospice, last chemotherapy infusion earlier this month, next infusion anticipated 09/01/23, now with 2 days of new cough and increasing shortness of breath. No prior blood clots for legs or lungs known, no pain or swelling to legs. She denies history of reactive airways, has no use of inhalers recently or in the past. Related Data Home Medications Medication Instructions Recorded Confirmed sertraline 25 mg PO BEDTIME 03/01/22 08/17/23 Allergies Allergy/AdvReac Type Severity Reaction Status Date / Time hydrocodone [From VICODIN] Allergy Intermediate trouble Verified 08/17/23 19:14 breathing tetracycline [TETRACYCLINE] Allergy Intermediate GI issues Verified 08/17/23 19:14 Patient History Medical History Esophageal cancer Epigastric pain Swallowing problem Fatigue Low hemoglobin Nocturnal leg cramps Dizziness Tremor Pure hypercholesterolemia, unspecified Essential tremor Fatigue after COVID-19 vaccination Somatic dysfunction of lower extremity Paresthesia of left foot GERD (gastroesophageal reflux disease) Situational anxiety Chronic right shoulder pain Bilateral foot pain Segmental and somatic dysfunction of sacral region Segmental and somatic dysfunction of abdomen and other regions Pelvic somatic dysfunction Lumbar region somatic dysfunction Thoracic region somatic dysfunction Cervical somatic dysfunction Cranial somatic dysfunction Chronic thoracic back pain Chronic headaches Pelvic pain in female Postconcussion syndrome Chronic low back pain New onset of headaches after age 48 Foot pain (2010) Ankle pain (2004) Hemorrhoids (1981) Allergic rhinitis (Unknown) Abnormal Pap smear of cervix (Unknown) History of DVT (deep vein thrombosis) (~2006) Asthma (1972) Herpes (~1972) Chickenpox (~1949) Measles (~1949) Cataracts, bilateral (~2009) Colon polyps (2014) Surgical History Hx of shoulder surgery (~2001) Hx of inguinal hernia repair (~2013) Status post colectomy History of cataract removal with insertion of prosthetic lens History of knee replacement (2004) Family History Brother Age: 71 Diabetes mellitus Lymphoma, unspecified body region, unspecified lymphoma type Mother Diabetes mellitus High cholesterol Father Cancer Social History household members: none Smoking Status: Never smoker Smoking Status: Never smoker alcohol intake frequency: holidays/special occasions only Substance Use Type: does not use Exam Narrative Exam Narrative: GENERAL: 73 year old patient appears stated age. Well-developed patient, in mild distress. HEAD: Atraumatic. Normocephalic. EYES: Pupils equal round and reactive. Extraocular motions intact. No scleral icterus. No injection or drainage. ENT: Nose without bleeding, purulent drainage. Throat without erythema, tonsillar hypertrophy or exudate. Airway patent. NECK: Trachea midline. Non tender. Wearing nasal cannula oxygen. CARDIOVASCULAR: Regular rate and rhythm without murmurs, gallops, or rubs. RESPIRATORY: Clear to auscultation. Breath sounds equal bilaterally. No wheezes, rales, or rhonchi. No intercostal or suprasternal retractions, speaking in full sentences. Right anterior upper chest Port-A-Cath, site appears atraumatic, no redness, no bruising, no discharge. GASTROINTESTINAL: Abdomen soft, non-tender, nondistended. EXTREMITIES: No edema or joint tenderness. BACK: Nontender without deformity or crepitance. No flank tenderness. NEURO: AOx3. SKIN: No rash or erythema of visible areas Initial Vital Signs Initial Vital Signs: Vital Signs Temperature 100.8 F H 08/17/23 19:08 Pulse Rate 134 H 08/17/23 19:08 Respiratory Rate 17 08/17/23 19:08 Blood Pressure 123/68 08/17/23 19:08 Pulse Oximetry 93 08/17/23 19:08 Oxygen Delivery Method Room Air 08/17/23 19:08 Course Orders Ordered: ED Orders 08/18/23 19:00 Magnesium DAILY 08/19/23 07:00 Basic Metabolic Panel DAILY 08/19/23 19:00 Magnesium DAILY 08/20/23 07:00 Basic Metabolic Panel DAILY 08/20/23 19:00 Magnesium DAILY 08/21/23 07:00 Basic Metabolic Panel DAILY Acetaminophen (Acetaminophen 325 Mg Tablet) 650 mg PO Q6H PRN PRN Reason: Fever/Mild Pain (1-3) Last Admin: 08/17/23 23:37 Dose: 650 mg Documented By: GIANNI Albuterol (Albuterol 2.5 Mg/3 Ml Neb (Adult)) 2.5 mg INH [id number] PRN PRN Reason: Dyspnea Albuterol/Ipratropium (Albuterol/Ipratropium 3 Ml Ampul) 3 ml INH [id number] PRN PRN Reason: Bronchospasm Benzocaine (Benzocaine/Menthol 1 Benjamin Pkt) 1 each PO Q4HR PRN PRN Reason: Sore Throat Last Admin: 08/18/23 07:37 Dose: 1 each Documented By: TYRA Benzonatate (Benzonatate 100 Mg Capsule) 100 mg PO TID PRN PRN Reason: Cough Last Admin: 08/18/23 08:43 Dose: 100 mg Documented By: Admin: 08/18/23 01:12 Dose: 100 mg Documented By: GIANNI Bisacodyl (Bisacodyl 5 Mg Tablet) 10 mg PO DAILY PRN PRN Reason: Constipation Calcium Carbonate (Calcium Carbonate 500 Mg Tab) 1,000 mg PO Q4HR PRN PRN Reason: Dyspepsia Enoxaparin Sodium (Enoxaparin 40 Mg/0.4 Ml Syringe) 40 mg SUBCUT DAILY [facility] Last Admin: 08/18/23 08:43 Dose: 40 mg Documented By: TYRA Hydralazine HCl (Hydralazine 20 Mg/Ml Vial) 10 mg IV Q6HR PRN PRN Reason: SBP>= 160 or DBP >=110 Hydromorphone HCl (Hydromorphone 0.5 Mg Inj) 0.5 mg IV Q2H PRN PRN Reason: Pain, Severe (7-10) Azithromycin 500 mg/ Dextrose 250 mls @ 250 mls/hr IV Q24H [facility] Last Admin: 08/17/23 23:11 Dose: 250 mls/hr Documented By: GIANNI Lidocaine HCl (Lidocaine Viscous 2% 100 Ml Solution) 5 ml MM BID PRN PRN Reason: pain Lorazepam (Lorazepam 2 Mg/Ml Inj) 0.25 mg IV Q4HR PRN PRN Reason: Anxiety Melatonin (Melatonin 3 Mg Tablet) 9 mg PO BEDTIME PRN PRN Reason: insomnia Naloxone HCl (Naloxone 0.4 Mg/Ml Vial) 0.2 mg IV Q2MIN PRN PRN Reason: Opiate Reversal Ondansetron HCl (Ondansetron 4 Mg Odt) 4 mg PO Q8H PRN PRN Reason: nausea and vomiting Ondansetron HCl (Ondansetron 4 Mg/2 Ml Inj) 4 mg IV Q8HR PRN PRN Reason: Nausea And Vomiting Prednisone (Prednisone 20 Mg Tablet) 40 mg PO DAILY [facility] Promethazine HCl (Promethazine 25 Mg Tablet) 25 mg PO TID PRN PRN Reason: Vomiting Zolpidem Tartrate (Zolpidem 5 Mg Tablet) 5 mg PO BEDTIME PRN PRN Reason: Insomnia Discontinued Medications Albuterol/Ipratropium (Albuterol/Ipratropium 3 Ml Ampul) 3 ml INH NOW ONE Stop: 08/17/23 21:11 Last Admin: 08/17/23 21:18 Dose: 3 ml Documented By: Sodium Chloride (Normal Saline 0.9%) 1,000 mls @ 1,000 mls/hr IV BOLUS ONE Stop: 08/17/23 20:18 Last Infusion: 08/17/23 21:25 Dose: Infused Documented By: Admin: 08/17/23 20:09 Dose: 1,000 mls/hr Documented By: MILDRED Sodium Chloride (Normal Saline 0.9%) 1,000 mls @ 100 mls/hr IV CONT [facility] Last Admin: 08/17/23 23:12 Dose: 100 mls/hr Documented By: GIANNI Methylprednisolone (Methylprednisolone 125 Mg/2 Ml Vial) 60 mg IV Q12HR [facility] Last Admin: 08/18/23 13:09 Dose: 60 mg Documented By: Admin: 08/17/23 23:40 Dose: 60 mg Documented By: GIANNI Ondansetron HCl (Ondansetron 4 Mg/2 Ml Inj) 4 mg IV NOW PRN PRN Reason: Nausea And Vomiting Vital Signs Vital signs: Vital Signs - 8 hr 08/17/23 19:08 08/17/23 20:21 08/17/23 20:30 Temperature 100.8 F H Pulse Rate 134 H 113 H 110 H Respiratory Rate 17 30 H 26 H Blood Pressure 123/68 Pulse Oximetry 93 93 93 Oxygen Delivery Method Room Air 08/17/23 20:30 08/17/23 20:46 08/17/23 21:00 Temperature 100.6 F H Pulse Rate 108 H Respiratory Rate 21 Blood Pressure 135/62 Pulse Oximetry 92 Oxygen Delivery Method 08/17/23 21:00 Temperature Pulse Rate Respiratory Rate Blood Pressure 143/73 H Pulse Oximetry Oxygen Delivery Method Medical Decision Making Differential Diagnosis Differential Diagnosis: Pneumonia bacterial, viral, PE, CHF, pleural effusion, RAD, other Lab Data Lab results reviewed: Yes I reviewed the patient's lab results. 08/17/23 19:26 08/17/23 19:26 Labs: Lab Results 08/17/23 08/17/23 Range/Units 19:26 19:52 WBC 5.0 (4.5-11.0) X10^3/uL RBC 4.96 (4.0-5.2) X10^6/uL Hgb 13.8 (12.0-16.0) g/dL Hct 42.5 (36-46) % MCV 85.6 (80-100) fL MCH 27.8 (26-34) PG MCHC 32.4 (30-36) % RDW 17.2 H (11.6-14.8) % Plt Count 137 L (150-400) X10^3/uL Neut % (Auto) 83.1 H (50-75) % Lymph % (Auto) 8.6 L (25-40) % [place] % (Auto) 7.6 (3-14) % Eos % (Auto) 0.4 L (2-4) % Baso % (Auto) 0.3 (0-2) % Neut # (Auto) 4200 (6155-6539) /uL Lymph # (Auto) 400 L (5668-4493) /uL [place] # (Auto) 400 (0-900) /uL Eos # (Auto) 0 (0-450) /uL Baso # (Auto) 0 (0-100) /uL PT 11.8 (9.4-12.5) SECONDS INR 1.0 (0.9-1.3) APTT 34 (25.1-36.5) SECONDS Sodium 134 L (137-145) mmol/L Potassium 4.3 (3.4-5.1) mmol/L Chloride 102 (98-107) mmol/L Carbon Dioxide 26 (22-32) mmol/L BUN 14 (7-17) mg/dL Creatinine 1.11 H (0.52-1.04) mg/dL Estimated GFR 52 L (>60) mL/min BUN/Creatinine Ratio 12.6 (6-22) Glucose 119 H (80-110) mg/dL Lactate 1.3 (0.7-2.1) mmol/L Calcium 9.2 (8.4-10.2) mg/dL Total Bilirubin 0.6 (0.2-1.3) mg/dL AST 36 (14-36) IU/L ALT 23 (<35) IU/L Alkaline Phosphatase 100 (38-126) U/L Total Protein 7.6 (6.3-8.2) g/dL Albumin 4.4 (3.5-5.0) g/dL Globulin 3.2 (1.7-4.1) g/dL Albumin/Globulin Ratio 1.4 (1.0-2.8) Lipase 93 (23-300) U/L Procalcitonin 0.090 (<0.5) ng/mL Chlamy pneumoniae PCR Not detected (Not Detect) Adenovirus (PCR) Not detected (Not Detect) B.parapertussis DNA PCR Not detected (Not Detecte) Coronavirus OC43 (PCR) Not detected (Not Detect) Coronavirus HKU1 (PCR) Not detected (Not Detect) Coronavirus 229E (PCR) Not detected (Not Detect) SARS-CoV-2 (PCR) Not detected (Not Detecte) Coronavirus NL63 (PCR) Not detected (Not Detect) Human Metapneumovir PCR Detected H (Not Detect) Influenza Type A (PCR) Not detected (Not Detect) Influenza Type B (PCR) Not detected (Not Detect) M. pneumoniae (PCR) Not detected (Not Detect) Parainfluenza 1 (PCR) Not detected (Not Detect) Parainfluenza 2 (PCR) Not detected (Not Detect) Parainfluenza 3 (PCR) Not detected (Not Detect) Parainfluenza 4 (PCR) Not detected (Not Detect) RSV (PCR) Not detected (Not Detect) Entero/Rhino (PCR) Not detected (Not Detect) Imaging Data Chest x-ray: Radiologist's Impression: [address] [address] XRay Report Signed Patient: Thais Parish MR#: [id number] : 1950 Acct:[id number] Age/Sex: 73 / F Date of Service: 08/17/23 Loc: ED Accession Number: [id number] Procedure: XR chest 1V Ordering Provider: Reg Rodriguez MD PROCEDURE: XR CHEST 1V INDICATIONS: suspected sepsis TECHNIQUE: One view of the chest was acquired. COMPARISON: [facility], CT, CT CHEST ABDOMEN PELVIS WITH CONTRAST, 07/31/2023, 10:38. FINDINGS: Surgical changes and devices: Right-sided port with the catheter tip at the lower 3rd of the SVC.. Lungs and pleura: Lungs are clear. No pleural effusions or pneumothorax. Mediastinum: Mediastinal contours appear normal. Heart size is normal. Bones and chest wall: No suspicious bony lesions. Overlying soft tissues appear unremarkable. IMPRESSION: No acute cardiopulmonary abnormality is seen. Dictated by: Nicolas Thacker M.D. on 08/17/2023 at 20:29 Approved by: Nicolas Thacker M.D. on 08/17/2023 at 20:29 [facility] Narrative Medical decision making narrative: 73-year-old female with recent cough and shortness of breath, new hypoxia 85% on room air, 91% on 2 L oxygen, chest x-ray negative see radiologist's report. SVN DuoNeb attempted, no significant change in her dyspnea, no interval wheezing. Respiratory panel swab positive for human metapneumovirus, otherwise negative. Her hypoxia seems secondary to acute viral illness, seems less likely pulmonary embolus. Hold CT chest angiogram for now. We will contact hospitalist regarding admission. Patient agreement. Additional Information: Case discussed with hospitalist Dr. Smith, accepts patient for admission to observation Critical Care Time Critical Care Time Critical Care Time: Yes Total Critical Care Time: 35 Attestation: The high probability of a clinically significant, sudden or life threatening deterioration of the [cardiopulmonary] system(s) required my full and direct attention, intervention and personal management. The aggregate critical care time was [35] minutes. This time is in addition to time spent performing reported procedures but includes the following: [x] Data Review and interpretation [x] Patient assessment and monitoring of vital signs [x] Documentation [x] Medication orders and management Discharge Plan Departure Patient Disposition: Admitted as Observation Clinical Impression: Human metapneumovirus pneumonia, Acute dyspnea, Hypoxia, Esophageal cancer, stage IV Admit Date/Time: 08/17/23 21:36 Admit Provider: Severino Smith
[2023-08-17] MEDS: ALBUTEROL/IPRATROPIUM 3 ML AMPUL INH (21:18)
[2023-08-17] MEDS: AZITHROMYCIN 500 MG in DEXTROSE 5% IN WATER 250 ML 250 MG IV (23:11)
[2023-08-17] MEDS: SODIUM CHLORIDE 0.9% 1,000 ML 100 ML IV (23:12)
[2023-08-17] MEDS: ACETAMINOPHEN 325 MG TABLET 650 MG PO (23:37)
[2023-08-17] MEDS: methylPREDNISolone 125 MG/2 ML VIAL 60 MG IV (23:40)
[2023-08-18] VITALS (8 sets, daily range): BP systolic 100–122; BP diastolic 65–80; PULSE 68–91; RESP 16–19; TEMP 35.9–37.2; O2SAT 90–96
[2023-08-18] MEDS: BENZONATATE 100 MG CAPSULE PO ×3 (01:12→20:58)
--- NOTE | 2023-08-18 04:07 | P.HP_ITS ---
History of Present Illness History of Present Illness Chief complaint: breathing issues, sent by [facility] Narrative: 73 years old female, with history of hyper lipidemia, Gerd, osteoarthritis, depression, osteoporosis, asthma, esophageal cancer stage IV, ongoing palliative chemotherapy present to the ER with shortness of bread, cough in the last two days getting progressed worse. Denies any chest pain, palpitations, fever, nausea, vomiting, abdominal pain, diarrhea or dysuria. In the ER she was found to have hypoxia with positive human metapneumovirus. CXR was unremarkable. Laboratory shows WBC 5, INR one, [id number], potassium 4.3, creatinine 1.1, glucose 119,lipase 93, procalcitonin 0.09. She was given albuterol, Zofran, Tylenol, and fluid bolus. [facility] Medical History Esophageal cancer Epigastric pain Swallowing problem Fatigue Low hemoglobin Nocturnal leg cramps Dizziness Tremor Pure hypercholesterolemia, unspecified Essential tremor Fatigue after COVID-19 vaccination Somatic dysfunction of lower extremity Paresthesia of left foot GERD (gastroesophageal reflux disease) Situational anxiety Chronic right shoulder pain Bilateral foot pain Segmental and somatic dysfunction of sacral region Segmental and somatic dysfunction of abdomen and other regions Pelvic somatic dysfunction Lumbar region somatic dysfunction Thoracic region somatic dysfunction Cervical somatic dysfunction Cranial somatic dysfunction Chronic thoracic back pain Chronic headaches Pelvic pain in female Postconcussion syndrome Chronic low back pain New onset of headaches after age 48 Foot pain (2009) Ankle pain (2004) Hemorrhoids (1981) Allergic rhinitis (Unknown) Abnormal Pap smear of cervix (Unknown) History of DVT (deep vein thrombosis) (~2006) Asthma (1972) Herpes (~1972) Chickenpox (~1949) Measles (~1949) Cataracts, bilateral (~2009) Colon polyps (2014) Surgical History Hx of shoulder surgery (~2001) Hx of inguinal hernia repair (~2013) Status post colectomy History of cataract removal with insertion of prosthetic lens History of knee replacement (2004) Family History Brother Age: 71 Diabetes mellitus Lymphoma, unspecified body region, unspecified lymphoma type Mother Diabetes mellitus High cholesterol Father Cancer Social History household members: none Smoking Status: Never smoker Meds Home Medications and Allergies Home Medications Medication Instructions Recorded Confirmed Type sertraline 25 mg PO BEDTIME 03/01/22 08/17/23 History Allergies Allergy/AdvReac Type Severity Reaction Status Date / Time hydrocodone [From VICODIN] Allergy Intermediate trouble Verified 08/17/23 19:14 breathing tetracycline [TETRACYCLINE] Allergy Intermediate GI issues Verified 08/17/23 19:14 Review of Systems Review of Systems ROS: Yes All systems reviewed with the patient and are negative except as otherwise documented Constitutional Constitutional: Reports as per HPI and Reports system reviewed and no additional complaints, except as documented Eyes Eyes: Reports as per HPI and Reports system reviewed and no additional complaints, except as documented ENT Ears, Nose, Mouth, and Throat: Yes as per HPI and Yes system reviewed and no additional complaints, except as documented Cardiovascular Cardiovascular: Reports system reviewed and no additional complaints, except as documented Respiratory Respiratory: Reports system reviewed and no additional complaints, except as documented Gastrointestinal Gastrointestinal: Reports system reviewed and no additional complaints, except as documented Genitourinary Genitourinary: Reports system reviewed and no additional complaints, except as documented Musculoskeletal Musculoskeletal: Reports system reviewed and no additional complaints, except as documented, Reports abnormal gait and Reports numbness Neurologic Neurologic: Reports system reviewed and no additional complaints, except as documented, Reports abnormal gait, Reports confusion and Reports numbness Psychiatric Psychiatric: Reports system reviewed and no additional complaints, except as documented and Reports confusion Exam Vital Signs (past 8 hours): - 08/17/23 20:21 08/17/23 20:30 08/17/23 20:30 Temperature Pulse Rate 113 H 110 H Respiratory Rate 30 H 26 H Blood Pressure 135/62 Pulse Oximetry 93 93 Oxygen Delivery Method Oxygen Flow Rate 08/17/23 20:46 08/17/23 21:00 08/17/23 21:00 Temperature 100.6 F H Pulse Rate 108 H Respiratory Rate 21 Blood Pressure 143/73 H Pulse Oximetry 92 Oxygen Delivery Method Oxygen Flow Rate 08/17/23 21:30 08/17/23 21:30 08/17/23 21:52 Temperature Pulse Rate 118 H Respiratory Rate 24 Blood Pressure 130/61 Pulse Oximetry 92 Oxygen Delivery Method Nasal Cannula Oxygen Flow Rate 08/17/23 22:00 08/17/23 22:00 08/17/23 22:48 Temperature 100.7 F H Pulse Rate 116 H 114 H Respiratory Rate 24 18 Blood Pressure 121/58 L 109/64 Pulse Oximetry 92 93 Oxygen Delivery Method Nasal Cannula Oxygen Flow Rate 3 3 08/17/23 23:37 08/18/23 00:30 08/18/23 01:26 Temperature 100.6 F H 98.9 F 98.9 F Pulse Rate Respiratory Rate Blood Pressure Pulse Oximetry Oxygen Delivery Method Oxygen Flow Rate 08/18/23 03:43 Temperature 98.9 F Pulse Rate 90 Respiratory Rate 16 Blood Pressure 122/66 Pulse Oximetry 93 Oxygen Delivery Method Oxygen Flow Rate 3 Oxygen Delivery Method Nasal Cannula Oxygen Flow Rate 3 Const General: cooperative, comfortable and well developed Orientation: alert and oriented x3 HENMT Head: normal to inspection, normocephalic and atraumatic Face and sinus: normal facial exam Mouth: oral mucosae normal and moist mucous membranes Throat: posterior oropharynx normal Eyes General: appearance normal, both eyes and all related structures Pupils: PERRL EOM: EOM intact bilaterally Neck Neck: normal visual inspection and full ROM Chest Chest: normal inspection of the chest Resp Effort & Inspection: normal respiratory effort and able to speak in complete sentences Auscultation: clear to auscultation bilaterally Cardio Palpation: normal PMI Rate: regular rate Rhythm: regular rhythm Heart Sounds: S1 normal and S2 normal GI Inspection: normal to inspection Palpation: soft and no hepatosplenomegaly Auscultation: normal bowel sounds Skin General: no rashes or lesions noted Lesions: no lesions Rashes: no rashes Trauma: no lacerations or abrasions Neuro General: patient alert, patient awake, patient oriented x3 and no focal motor deficits Cranial Nerves: CN's II-XI intact bilaterally Cognition: normal cognition Speech: speech normal Gait: normal gait Motor: muscle tone normal throughout Sensory Exam: no sensory deficits noted Extrem General: full ROM and no calf tenderness Psych Appearance: grossly normal Mental Status: mental status grossly normal Speech and Movement: speech and movement normal Objective Labs 08/17/23 19:26 08/17/23 19:26 Labs: Laboratory Results - last 24 hr 08/17/23 08/17/23 19:26 19:52 WBC 5.0 RBC 4.96 Hgb 13.8 Hct 42.5 MCV 85.6 MCH 27.8 MCHC 32.4 RDW 17.2 H Plt Count 137 L Neut % (Auto) 83.1 H Lymph % (Auto) 8.6 L [place] % (Auto) 7.6 Eos % (Auto) 0.4 L Baso % (Auto) 0.3 Neut # (Auto) 4200 Lymph # (Auto) 400 L [place] # (Auto) 400 Eos # (Auto) 0 Baso # (Auto) 0 PT 11.8 INR 1.0 APTT 34 Sodium 134 L Potassium 4.3 Chloride 102 Carbon Dioxide 26 BUN 14 Creatinine 1.11 H Estimated GFR 52 L BUN/Creatinine Ratio 12.6 Glucose 119 H Lactate 1.3 Calcium 9.2 Total Bilirubin 0.6 AST 36 ALT 23 Alkaline Phosphatase 100 Total Protein 7.6 Albumin 4.4 Globulin 3.2 Albumin/Globulin Ratio 1.4 Lipase 93 Procalcitonin 0.090 Chlamy pneumoniae PCR Not detected Adenovirus (PCR) Not detected B.parapertussis DNA PCR Not detected Coronavirus OC43 (PCR) Not detected Coronavirus HKU1 (PCR) Not detected Coronavirus 229E (PCR) Not detected SARS-CoV-2 (PCR) Not detected Coronavirus NL63 (PCR) Not detected Human Metapneumovir PCR Detected H Influenza Type A (PCR) Not detected Influenza Type B (PCR) Not detected M. pneumoniae (PCR) Not detected Parainfluenza 1 (PCR) Not detected Parainfluenza 2 (PCR) Not detected Parainfluenza 3 (PCR) Not detected Parainfluenza 4 (PCR) Not detected RSV (PCR) Not detected Entero/Rhino (PCR) Not detected Assessment & Plan Assessment & Plan narrative: Acute respiratory failure with hypoxia. Viral pneumonia -admit for observation -IV fluids -oxygen supplement prn -Tylenol for fever PRN -Azithromycin course of 5 days Depression. Restart sertraline. Esophageal cancer stage IV. Pain medication prn Asthma. Albuterol prn Time Spent With Patient Time with patient: 50 to 69 minutes with 50% spent counseling/coordinating care Quality VTE Deep Vein Thrombosis/Pulmonary Embolism Present on Admission: No MIPS - Admit I confirm the patient?s Advance Care Plan is present, Code status is documented, Surrogate decision maker is in patient?s record [If Yes, STOP here]: Yes MIPS - Meds 'Current medications' to include all prescriptions, [id number] products, herbals, cannabis/cannabidiol products, and vitamin/mineral/dietary (nutritional) supplements. I have utilized all available resources to obtain, update, or review the patient?s current medications. [If Yes, STOP here]: Yes
[2023-08-18] MEDS: BENZOCAINE/MENTHOL 1 LOZ PKT 1 EACH PO (07:37)
[2023-08-18] MEDS: ENOXAPARIN 40 MG/0.4 ML SYRINGE SUBCUT (08:43)
--- NOTE | 2023-08-18 09:10 | PT.IIE ---
Surgical History (Last Reviewed 02/26/23 @ 15:49 by Hoa Dennison PA-C) History of cataract removal with insertion of prosthetic lens History of knee replacement (2004) Hx of inguinal hernia repair (~2013) Hx of shoulder surgery (~2001) Status post colectomy Medical History (Last Reviewed 02/26/23 @ 15:49 by Hoa Dennison PA-C) Abnormal Pap smear of cervix (Unknown) Allergic rhinitis (Unknown) Ankle pain (2004) Asthma (1972) Bilateral foot pain Cataracts, bilateral (~2009) Cervical somatic dysfunction Chickenpox (~1949) Chronic headaches Chronic low back pain Chronic right shoulder pain Chronic thoracic back pain Colon polyps (2014) Cranial somatic dysfunction Dizziness Epigastric pain Esophageal cancer Essential tremor Fatigue Fatigue after COVID-19 vaccination Foot pain (2009) GERD (gastroesophageal reflux disease) Hemorrhoids (1981) Herpes (~1972) History of DVT (deep vein thrombosis) (~2006) Low hemoglobin Lumbar region somatic dysfunction Measles (~1949) New onset of headaches after age 48 Nocturnal leg cramps Paresthesia of left foot Pelvic pain in female Pelvic somatic dysfunction Postconcussion syndrome Pure hypercholesterolemia, unspecified Segmental and somatic dysfunction of abdomen and other regions Segmental and somatic dysfunction of sacral region Situational anxiety Somatic dysfunction of lower extremity Swallowing problem Thoracic region somatic dysfunction Tremor Physical Therapy Inpatient Evaluation/Re-Eval M1 PT/OT-IP Prior Functional Status Start: 08/18/23 13:07 Freq: NEEDED Status: Active Protocol: Document 08/18/23 09:10 AB (Rec: 08/18/23 13:23 AB [id number]) Medical Review Prior Functional Status Medical History Reviewed Yes Communication able to make needs known Mobility and Gait pt stated that she was independent with all mobilities and ambulation without AD Social History Household Members none Living Arrangements House Number of Floors (Floors) Two Floors Number of Stairs To Enter/Railing? 3 steps without rails to enter the house 15 steps B rails to get to bedroom level Home Environment Standard Height Toilet,Walk in Shower Home Equipment Shower Seat with Backrest,Hand Held Shower Additional Social History Comment pt has walking sticks M2 PT-IP Current Condition Start: 08/18/23 13:07 Freq: NEEDED Status: Active Protocol: Document 08/18/23 09:10 AB (Rec: 08/18/23 13:23 AB [id number]) Physical Therapy Current Condition Current Condition Evaluation Date 08/18/23 Treatment Diagnosis PNA; difficulty in walking Onset Date 08/17/23 M3 PT-IP Subjective Start: 08/18/23 13:07 Freq: NEEDED Status: Active Protocol: Document 08/18/23 09:10 AB (Rec: 08/18/23 13:23 AB [id number]) Subjective Physical Therapy Visit Type Type Initial Evaluation Visit Start Time 09:10 Visit Stop Time 10:00 Number of PROCESS CONSULTANT Visits 0 Physical Therapy Visit Comments Patient Comments agreeable to do PT M4 PT-IP Mobility and Gait Start: 08/18/23 13:07 Freq: NEEDED Status: Active Protocol: Document 08/18/23 09:10 AB (Rec: 08/18/23 13:23 AB [id number]) PT-Bed Mobility Assessment Supine to Sit Supine to Sit Independent PT-Transfer Assessment Sit to and From Stand Sit to and from Stand Independent Equipment Transfer Assistive Device None Orthotic/Prosthetic Devices or Brace: No Transfers Transfer Destination Chair Transfer Technique ambulated Transfer Ability Level of Assist Standby Assistance,1 Person Assistance,Use of Upper Extremities Comments Mobility Comments pt supine in bed. obtained PLOF and home set up from pt. pt with 3L/min O2 and o2 sat at 94%. O2 sat at RA 94%. pt completed activites without supplemental O2 and O2 sat: 88 -96%. pt completed supine to sit mod I. sit to stand SBA and ambulated in room without AD 50 ft. No LOB. O2 sat after walkin%. pt agreed to do stairs. step stool set up and pt completed up/down step without AD SBA x 3 sets. pt sat back on chair. O2 sat 90- 92%. pt rested. positioned on the chair. O2 sat varies: 88- 90% . supplemental O2 put back on pt and oximeter. informed nurse. call light and table placed within reach. informed pt regarding current mobility and no further PT needs at this time. pt agreed. informed nurse. pt can be independent in room without AD . Gait Assessment Gait Gait Assistance Required: Standby Assistance Distance (Feet) 50 Able to Maintain Weight Bearing Status Yes During Gait Assistive Devices Assistive Device None Orthotic/Prosthetic Devices or Brace: No Factors Limiting Gait Function Factors Limiting Gait Function Decreased Activity Tolerance, Respiratory Distress Stair Climbing Assessment Evaluation Level of Assist On Stairs Standby Assistance Devices Stair Climbing Assistive Devices None Technique/Endurance Stair Climbing Direction Ascend and Descend Stair Climbing Technique Step to Step Number of Steps Climbed 1 Query Text: Stair Climbing Set # Repetitions (reps) 3 PT-Balance Assessment Sitting Balance and Reactions Static Sitting Balance Ability Normal Dynamic Sitting Balance Ability Normal Standing Balance and Reactions Static Standing Balance Ability Good Dynamic Standing Balance Ability Good Device Used without AD M5 PT-IP Objective Assessments Start: 08/18/23 13:07 Freq: NEEDED Status: Active Protocol: Document 08/18/23 09:10 AB (Rec: 08/18/23 13:23 AB [id number]) Orientation Orientation/Cognition Level of Alertness Alert Orientation Name,Place,Situation Language Function Ability No Deficits Noted Safety Awareness Understands Safety Issues Memory Description No Deficits Noted Gross Range of Motion Lower Extremity ROM Assessment Within Functional Limits Strength Lower Extremity Strength Assessment Within Functional Limits Coordination Assessment Gross Coordination Gross Coordination WNL Muscle Tone Muscle Tone WNL Yes M6 PT-IP Treatment Start: 08/18/23 13:07 Freq: NEEDED Status: Active Protocol: Document 08/18/23 09:10 AB (Rec: 08/18/23 13:23 AB [id number]) Physical Therapy Treatment Education Education Provided Safety M7 PT-IP Assessment and Plan Start: 08/18/23 13:07 Freq: NEEDED Status: Active Protocol: Document 08/18/23 09:10 AB (Rec: 08/18/23 13:23 AB [id number]) PT Summary Assessment and Plan Potential Rehabilitation Potential Good Status of Condition at Evaluation Evolving Summary Impairments Gait,Activity Tolerance Assessment Summary pt is a 73 y/o F who is admitted for PNA. pt is modified independent with bed mobility, can be independent in room for ambulation without AD but may require supervision for safety. O2 sat during activity 90-96% but decreased to ~ 88% resting at end of PT session but recovered to 90% after deep breathing. Pt's current limitation is due to PNA affecting activity tolerance. No further PT intervention indicated at this time. Nursing staff to continue to assist pt with mobilizing and ambulation while here in the hospital. Frequency of Treatment Frequency Of Treatment Discharge Recommendations To Nursing Amount of Assist Needed Standby Assistance Discharge Recommendations PT Discharge Recommendations Home Transportation Needs at Discharge Private Vehicle
--- NOTE | 2023-08-18 10:58 | OT.IP.EVAL ---
Past Medical History (Last Reviewed 02/26/23 @ 15:49 by Hoa Dennison PA-C) Abnormal Pap smear of cervix (Unknown) Allergic rhinitis (Unknown) Ankle pain (2004) Asthma (1972) Bilateral foot pain Cataracts, bilateral (~2009) Cervical somatic dysfunction Chickenpox (~1949) Chronic headaches Chronic low back pain Chronic right shoulder pain Chronic thoracic back pain Colon polyps (2015) Cranial somatic dysfunction Dizziness Epigastric pain Esophageal cancer Essential tremor Fatigue Fatigue after COVID-19 vaccination Foot pain (2009) GERD (gastroesophageal reflux disease) Hemorrhoids (1981) Herpes (~1972) History of DVT (deep vein thrombosis) (~2006) Low hemoglobin Lumbar region somatic dysfunction Measles (~1949) New onset of headaches after age 48 Nocturnal leg cramps Paresthesia of left foot Pelvic pain in female Pelvic somatic dysfunction Postconcussion syndrome Pure hypercholesterolemia, unspecified Segmental and somatic dysfunction of abdomen and other regions Segmental and somatic dysfunction of sacral region Situational anxiety Somatic dysfunction of lower extremity Swallowing problem Thoracic region somatic dysfunction Tremor Surgical History (Last Reviewed 02/26/23 @ 15:49 by Hoa Dennison PA-C) History of cataract removal with insertion of prosthetic lens History of knee replacement (2004) Hx of inguinal hernia repair (~2013) Hx of shoulder surgery (~2001) Status post colectomy Occupational Therapy Inpatient Evaluation/Re-Eval M1 PT/OT-IP Prior Functional Status Start: 08/18/23 11:00 Freq: NEEDED Status: Active Protocol: Document 08/18/23 11:00 [facility] (Rec: 08/18/23 11:10 [facility] [id number]) Medical Review Prior Functional Status Communication Independent Mobility and Gait Independent and walks her dog at [place]. Activities of Daily Living and IADL's COmpletely independent with ADl and IADL needs. Social History Household Members none Living Arrangements House Number of Stairs To Enter/Railing? 3 steps with no rail. Home Environment Standard Height Toilet,Walk in Shower Home Equipment Shower Seat with Backrest M2 OT-IP Current Condition Start: 08/18/23 11:00 Freq: Status: Active Protocol: Document 08/18/23 11:00 [facility] (Rec: 08/18/23 11:10 [facility] [id number]) Occupational Therapy Current Condition Current Condition Evaluation Date 08/18/23 Treatment Diagnosis SOB/hypoxia Diagnosis Onset Date 08/17/23 M3 OT- IP Subjective and Pain Start: 08/18/23 11:00 Freq: Status: Active Protocol: Document 08/18/23 11:00 [facility] (Rec: 08/18/23 11:10 [facility] [id number]) OT- Subjective Occupational Therapy Visit Type Type Initial Evaluation Visit Start Time 10:05 Visit Stop Time 10:58 Occupational Therapy Visit Comments Patient Comments Pt agreed to work with OT and shower. Patient/Caregiver Goals To go home. OT Pain Assessment Pain When Pain Assessed At Rest Pain Present Pain Present Denied Pain M4 OT- IP ADL's Start: 08/18/23 11:00 Freq: Status: Active Protocol: Document 08/18/23 11:00 [facility] (Rec: 08/18/23 11:10 [facility] [id number]) OT [id number] General Evaluation Self-Feeding Ability Independent OT ADL-Grooming General Evaluation Grooming Ability Independent OT ADL-Oral Care General Eval Oral Care Ability Standby Assistance Areas of Assistance Retrieving/Set-Up of Items Comments Oral Care Comments Assist to open wrapper on the toothbrush. OT ADL-Dressing General Eval Upper Body Dressing Ability Independent Lower Body Dressing Ability Independent OT ADL-Toileting General Evaluation Toileting Ability Independent OT ADL-Bathing General Evaluation Bathing Ability Independent,Standby Assistance Comments OT Bathing Comments Pt just needing assist to help manage the O2 tubing. Pt on 3L while showering and at 95% and able to take off the O2 on RA at 91%. M5 OT- IP IADL's Start: 08/18/23 11:00 Freq: Status: Active Protocol: Document 08/18/23 11:00 [facility] (Rec: 08/18/23 11:10 [facility] [id number]) OT-Instrumental Activities of Daily Living Deficits IADL Deficits Identified No Deficits Home Safety Awareness Awareness of Need for Assistance at Home Good Awareness Ability to Problem Solve Emergency Able to Problem Solve Situations Medication Management Medication Management No Deficits Identified Money Management Money Management No Deficits Identified Meal Preparation Meal Preparation No Deficits Identified Entertainment Production Professional Entertainment Production Professional No Deficits Identified M6 OT- IP Functional Cognition Start: 08/18/23 11:00 Freq: Status: Active Protocol: Document 08/18/23 11:00 [facility] (Rec: 08/18/23 11:10 [facility] [id number]) Cognitive Factors Limiting Selfcare Function Cognitive Ability Level of Alertness Alert Patient Orientation Name,Age,Birthday,Month,Date, Year,Day of Week,Place, Situation Attention Span Ability Capable of Focused Attention, Capable of Sustained Attention Ability to Follow Commands Able to Follow Multi-Step Commands Cognitive Comments Cognitive Assessment Comments Went over energy conservation strategies for the pt. Suggested pt to put her shower chair in the shower so able to have it if needed. OT- Vision and Hearing OT- Hearing Assessment OT- Hearing Assessment WFL OT- Vision Assessment Visual Acuity WFL Visual Attentiveness WFL Occular Pursuits WFL M7 OT- IP Mobility and Balance Start: 08/18/23 11:00 Freq: Status: Active Protocol: Document 08/18/23 11:00 [facility] (Rec: 08/18/23 11:10 [facility] [id number]) OT-Transfer Assessment Sit to and From Stand Sit to and from Stand Independent Transfers Transfer Ability Independent Technique Transfer Destination Bed,Shower Stall,Toilet Transfer Technique Stand Step Pivot Devices Transfer Assistive Devices None Comments Mobility Comments Pt independent in the room and able to manage her O2 line. After coming back from the shower O2 on RA reading states 79% but after several deep breaths able to get to 92%. Had pt do sit to stands x10 and O2 dropped from 95% to 91 % on RA. Spoke to nursing and O2 turned down to 1L and at 92%. OT- Balance Assessment Sitting Balance and Reactions Static Sitting Balance Ability Normal Dynamic Sitting Balance Ability Normal Standing Balance and Reactions Static Standing Balance Ability Normal Dynamic Standing Balance Ability Normal M8 OT- IP Objective Assessments Start: 08/18/23 11:00 Freq: Status: Active Protocol: Document 08/18/23 11:00 [facility] (Rec: 08/18/23 11:10 [facility] [id number]) OT Gross Range of Motion Upper Extremity Range of Motion Assessment Within Functional Limits OT Strength Upper Extremity Strength Assessment Within Functional Limits OT- Coordination Assessment Comments Coordination Comments Arthrtic changes in hands assist for set-up at times. M9 OT- IP Assessment and Plan Start: 08/18/23 11:00 Freq: Status: Active Protocol: Document 08/18/23 11:00 [facility] (Rec: 08/18/23 11:10 [facility] [id number]) OT Summary Assessment and Plan Potential Rehabilitation Potential Excellent Analytic Complexity at Evaluation Low Summary OT Impairments Activity Tolerance Progress Towards Goals Progressing Toward Goals Assessment Summary Pt low complexity and main barrier is need use of O2 as her level drops after exertion but quickly increased after taking deep breaths. Able to go over energy conservations and safety suggestions for pt. Pt to go home when medically stable. At this time pt has no OT needs. Frequency of Treatment Frequency Of Treatment Discharge Discharge Recommendations OT Discharge Recommendations Home Transportation Needs at Discharge Private Vehicle
--- NOTE | 2023-08-18 11:13 | CM.DANOTE ---
Initial DCP Assessment Visit Note Reviewed EMR and team rounds for status updates. TRAFFIC COUNTER did not meet with pt in person this visit due to the high viral load in the room and droplet precautions, will plan to meet with her later tomorrow once she's feeling better. Pt resides alone in her own home here in [place]. She has a dtr that lives in [place], and a local family/friend that are supportive and assist pt as needed. Will plan to confirm her transport home as she gets closer to d/c. Payor: Medicare PCP: Dr. Luevano Pt is a 73 year-old F with a PMH of stage IV endometrial cancer, currently getting palliative chemotherapy, her next dose is scheduled for next week. She presented to the ED last evening with c/o having a worsening cough and shortness of breath over the last 2-days. In the ED, she was found to be hypoxic and satting at 85%. Her Respiratory Panel came back positive for metapneumovirus. She was started on O2, IV ABO's, DuoNebs, and bronchodialators in the ED, and admitted to the floor for further tx. DCP will continue to follow and assist with final d/c recommendations/needs. Discharge Planning/Care Management CM Discharge Assessment Start: 08/18/23 11:11 Freq: Status: Active Protocol: Document 08/18/23 11:11 DPL (Rec: 08/18/23 11:13 DPL [id number]) Discharge Planning Assessment Assigned Retail Planner ZEYNEP Negrete Advance Directives? No History Provided By Medical Record Has Patient been admitted in last 30 No days? Prior Living Arrangements House Household Members none Type of transporation used prior to Drives own vehicle admit Independent with ADL's Yes Is patient alert and oriented? Yes Caregiver for Another No Comment N/A Comment Pending PT/OT recommendations as well as pt's improvement with treatments. Barriers to Discharge No Discharge Plan Home Transportation Arrangement Local family Additional Comment Pending. Whiteboard Updated in Patient Room with No name and ext. # of Retail Planner Comment TRAFFIC COUNTER did not enter the room due to viral load. Will plan to meet with her over the weekend to discuss discharge preferences. Review Status In Process Please Provide Date Initial DC 08/18/23 Assessment Was Performed
[2023-08-18] MEDS: methylPREDNISolone 125 MG/2 ML VIAL 60 MG IV (13:09)
--- NOTE | 2023-08-18 14:10 | PM.PN.1 ---
Subjective Subjective Interval history: 73 F with PMH of esophageal cancer admitted with acute respiratory failure with hypoxia, secondary to viral pneumonia. Improved today but still desatruates to upper 80s on room air with minimal movement. She does report feeling a bit improved today. Exam Vital Signs (past 8 hours): - 08/18/23 08:00 08/18/23 12:00 Temperature 97.3 F L 97.8 F Pulse Rate 68 85 Respiratory Rate 16 18 Blood Pressure 112/68 106/65 Pulse Oximetry 95 90 L Oxygen Flow Rate 3 0 Oxygen Delivery Method Nasal Cannula Oxygen Flow Rate 0 Narrative Exam Narrative: Gen: well appearing, no acute distress CV: RRR no m/r/g Pulm: CTA b/l Abd: S NT ND Ext; No edema. Objective Labs 08/17/23 19:26 08/17/23 19:26 Labs: Laboratory Results - last 24 hr 08/17/23 08/17/23 19:26 19:52 WBC 5.0 RBC 4.96 Hgb 13.8 Hct 42.5 MCV 85.6 MCH 27.8 MCHC 32.4 RDW 17.2 H Plt Count 137 L Neut % (Auto) 83.1 H Lymph % (Auto) 8.6 L Centre % (Auto) 7.6 Eos % (Auto) 0.4 L Baso % (Auto) 0.3 Neut # (Auto) 4200 Lymph # (Auto) 400 L Centre # (Auto) 400 Eos # (Auto) 0 Baso # (Auto) 0 PT 11.8 INR 1.0 APTT 34 Sodium 134 L Potassium 4.3 Chloride 102 Carbon Dioxide 26 BUN 14 Creatinine 1.11 H Estimated GFR 52 L BUN/Creatinine Ratio 12.6 Glucose 119 H Lactate 1.3 Calcium 9.2 Total Bilirubin 0.6 AST 36 ALT 23 Alkaline Phosphatase 100 Total Protein 7.6 Albumin 4.4 Globulin 3.2 Albumin/Globulin Ratio 1.4 Lipase 93 Procalcitonin 0.090 Chlamy pneumoniae PCR Not detected Adenovirus (PCR) Not detected B.parapertussis DNA PCR Not detected Coronavirus OC43 (PCR) Not detected Coronavirus HKU1 (PCR) Not detected Coronavirus 229E (PCR) Not detected SARS-CoV-2 (PCR) Not detected Coronavirus NL63 (PCR) Not detected Human Metapneumovir PCR Detected H Influenza Type A (PCR) Not detected Influenza Type B (PCR) Not detected M. pneumoniae (PCR) Not detected Parainfluenza 1 (PCR) Not detected Parainfluenza 2 (PCR) Not detected Parainfluenza 3 (PCR) Not detected Parainfluenza 4 (PCR) Not detected RSV (PCR) Not detected Entero/Rhino (PCR) Not detected PFS Medical History Esophageal cancer Epigastric pain Swallowing problem Fatigue Low hemoglobin Nocturnal leg cramps Dizziness Tremor Pure hypercholesterolemia, unspecified Essential tremor Fatigue after COVID-19 vaccination Somatic dysfunction of lower extremity Paresthesia of left foot GERD (gastroesophageal reflux disease) Situational anxiety Chronic right shoulder pain Bilateral foot pain Segmental and somatic dysfunction of sacral region Segmental and somatic dysfunction of abdomen and other regions Pelvic somatic dysfunction Lumbar region somatic dysfunction Thoracic region somatic dysfunction Cervical somatic dysfunction Cranial somatic dysfunction Chronic thoracic back pain Chronic headaches Pelvic pain in female Postconcussion syndrome Chronic low back pain New onset of headaches after age 48 Foot pain (2009) Ankle pain (2004) Hemorrhoids (1981) Allergic rhinitis (Unknown) Abnormal Pap smear of cervix (Unknown) History of DVT (deep vein thrombosis) (~2006) Asthma (1972) Herpes (~1972) Chickenpox (~1949) Measles (~1949) Cataracts, bilateral (~2009) Colon polyps (2014) Surgical History Hx of shoulder surgery (~2001) Hx of inguinal hernia repair (~2013) Status post colectomy History of cataract removal with insertion of prosthetic lens History of knee replacement (2004) Family History Brother Age: 71 Diabetes mellitus Lymphoma, unspecified body region, unspecified lymphoma type Mother Diabetes mellitus High cholesterol Father Cancer Social History household members: none Smoking Status: Never smoker Assessment & Plan Assessment & Plan narrative: Acute respiratory failure with hypoxia secondary to human metapneumo virus pneumonia and asthma exacerbation / reactive airway - presume secondary to viral pneumonia, IV steroid changed to prednisone. Continue azithromycin - wean from O2 as tolerated, goal 90-96% on supplemental therapy. Continues to require supplemental oxygen today. Esophageal cancer stage IV. Pain medication prn Asthma. Albuterol prn Code: DNR, surrogate is patient's daughter DVT: Lovenox Dispo: likely home in 1-2 more days, once no longer requiring supplemental oxygen. Quality VTE Deep Vein Thrombosis/Pulmonary Embolism Present on Admission: No
[2023-08-18 19:56] LABS: Magnesium 2.3 mg/dL (1.6-2.3)
[2023-08-18] MEDS: AZITHROMYCIN 500 MG in DEXTROSE 5% IN WATER 250 ML 250 MG IV (20:57)
[2023-08-18] MEDS: SERTRALINE 50 MG TABLET 25 MG PO (20:58)
[2023-08-19 02:00] VITALS: BP 125/58; PULSE 84; RESP 18; TEMP 35.7; O2SAT 91
[2023-08-19] MEDS: BENZONATATE 100 MG CAPSULE PO (02:56)
[2023-08-19 08:00] VITALS: BP 115/64; PULSE 79; RESP 16; TEMP 36.3; O2SAT 96
[2023-08-19 08:06] LABS: BUN Creatinine Ratio 28.6 (6-22); Blood Urea Nitrogen 22 mg/dL (7-17); Calcium 8.7 mg/dL (8.4-10.2); Carbon Dioxide 24 mmol/L (22-32); Chloride 108 mmol/L (98-107); Estimated Glomerular Filt Rate > 60 mL/min (>60); Glucose 114 mg/dL (80-110); HEMOLYSIS < 15 (0-50); Potassium 4.2 mmol/L (3.4-5.1); Sodium 137 mmol/L (137-145)
[2023-08-19] MEDS: ENOXAPARIN 40 MG/0.4 ML SYRINGE SUBCUT (08:45)
[2023-08-19] MEDS: predniSONE 20 MG TABLET 40 MG PO (08:46)
[2023-08-19] MEDS: SODIUM CHLORIDE 0.9% FLUSH 10 ML IV (08:46)
--- NOTE | 2023-08-19 09:36 | PM.DS.1 ---
History of Present Illness History of Present Illness Date Patient Seen: 08/19/23 Time Patient Seen: 09:36 Chief complaint: breathing issues, sent by [facility] Narrative: 73 years old female, with history of hyper lipidemia, Gerd, osteoarthritis, depression, osteoporosis, asthma, esophageal cancer stage IV, ongoing palliative chemotherapy present to the ER with shortness of bread, cough in the last two days getting progressed worse. Denies any chest pain, palpitations, fever, nausea, vomiting, abdominal pain, diarrhea or dysuria. In the ER she was found to have hypoxia with positive human metapneumovirus. CXR was unremarkable. Laboratory shows WBC 5, INR one, [id number], potassium 4.3, creatinine 1.1, glucose 119,lipase 93, procalcitonin 0.09. She was given albuterol, Zofran, Tylenol, and fluid bolus. Discharge Providers Provider Date of admission: 08/17/23 21:36 Discharge Date: 08/19/23 Primary care physician: Yogesh Luevano DO Consults: 08/17/23 21:42 Consult to Discharge Planning Routine Comment: Consult to Occupational Therapy Evaluate & Treat Comment: Physician Instructions: Evaluate and treat Consult to Physical Therapy Evaluate & Treat Comment: Physician Instructions: Evaluate and Treat Discharge provider: Jerry Benz DO Summary Hospital Course Discharge Diagnosis: Acute respiratory failure with hypoxia secondary to human metapneumo virus pneumonia and asthma exacerbation / reactive airway Esophageal cancer stage IV. Asthma with exacerbation Chronic thrombocytopenia Sepsis ruled out. Hospital Course: This is a 73 year old female admitted with acute respiratory failure secondary to human metapneumovirus pneumonia. She has a chronic thrombocytopenia and presentation is not consistent with sepsis. She was started on prednisone for presumed reactive airway and azithromycin for inflammatory effects. She improved slowly, ultimately no longer requiring supplemental oxygen after a couple of days. Once she was no longer requiring supplemental oxygen she was discharged home. A few more days of azithromycin and prednisone were sent upon discharge. No other medication changes are recommended upon discharge. Time Spent with Patient Time spent: Greater than 30 minutes Exam Vital Signs (past 8 hours): - 08/19/23 02:00 Temperature 96.2 F L Pulse Rate 84 Respiratory Rate 18 Blood Pressure 125/58 L Pulse Oximetry 91 Oxygen Flow Rate 2 Fraction of Inspired Oxygen 28 SaO2/FiO2 Ratio 325 Oxygen Delivery Method Nasal Cannula Oxygen Flow Rate 2 Narrative Exam Narrative: Gen: well appearing, no acute distress CV: RRR no m/r/g Pulm: CTA b/l Abd: S NT ND Ext; No edema. Objective Labs 08/17/23 19:26 08/19/23 07:45 Labs: Laboratory Results - last 24 hr 08/18/23 08/19/23 19:24 07:45 Sodium 137 Potassium 4.2 Chloride 108 H Carbon Dioxide 24 BUN 22 H Creatinine 0.77 Estimated GFR > 60 BUN/Creatinine Ratio 28.6 H Glucose 114 H Calcium 8.7 Magnesium 2.3 PFSH Medical History Esophageal cancer Epigastric pain Swallowing problem Fatigue Low hemoglobin Nocturnal leg cramps Dizziness Tremor Pure hypercholesterolemia, unspecified Essential tremor Fatigue after COVID-19 vaccination Somatic dysfunction of lower extremity Paresthesia of left foot GERD (gastroesophageal reflux disease) Situational anxiety Chronic right shoulder pain Bilateral foot pain Segmental and somatic dysfunction of sacral region Segmental and somatic dysfunction of abdomen and other regions Pelvic somatic dysfunction Lumbar region somatic dysfunction Thoracic region somatic dysfunction Cervical somatic dysfunction Cranial somatic dysfunction Chronic thoracic back pain Chronic headaches Pelvic pain in female Postconcussion syndrome Chronic low back pain New onset of headaches after age 48 Foot pain (2009) Ankle pain (2004) Hemorrhoids (1981) Allergic rhinitis (Unknown) Abnormal Pap smear of cervix (Unknown) History of DVT (deep vein thrombosis) (~2006) Asthma (1972) Herpes (~1972) Chickenpox (~1949) Measles (~1949) Cataracts, bilateral (~2009) Colon polyps (2014) Surgical History Hx of shoulder surgery (~2001) Hx of inguinal hernia repair (~2013) Status post colectomy History of cataract removal with insertion of prosthetic lens History of knee replacement (2004) Family History Brother Age: 71 Diabetes mellitus Lymphoma, unspecified body region, unspecified lymphoma type Mother Diabetes mellitus High cholesterol Father Cancer Social History household members: none Smoking Status: Never smoker Discharge Plan Discharge Plan Patient Disposition: Home Provider Discharge Comment: You were admitted to the hospital with a viral pneumonia. Improved with steroids and other supportive care. Complete therapy with azithromycin and prednisone at home. Follow up with your primary care doctor as previously scheduled. Discharge orders & Medications Prescriptions: New azithromycin 250 mg tablet 250 mg PO DAILY 2 Days Qty: 2 0RF albuterol sulfate 90 mcg/actuation HFA aerosol inhaler 2 puff inhalation Q6H PRN (Reason: shortness of breath or wheezing) Qty: 8.5 0RF prednisone 20 mg tablet 40 mg PO DAILY 3 Days Qty: 6 0RF benzonatate 100 mg capsule 100 mg PO BID PRN (Reason: cough) 30 Days Qty: 30 0RF Continued sertraline 25 mg PO BEDTIME Follow up/Referrals: Yogesh Luevano DO [Primary Care Provider] - Diet/Activity/Treatments Diet: Diet as Tolerated and Regular Activity: As tolerated, no restrictions. Visit Report/Discharge Packet Instructions: DI for Pneumonia -- Adult, Prednisone, Azithromycin Stand Alone Forms: Patient Portal/API, Stroke Signs & Symptoms Discharge Data Primary Care Provider: Yogesh Luevano Quality VTE Deep Vein Thrombosis/Pulmonary Embolism Present on Admission: No
--- NOTE | 2023-08-19 10:18 | CM.DPC ---
DCP Cont. Reviewed EMR and team rounds for status updates. Pt was taken off of O2 today, and has been medically cleared for home discharge. No further needs are identified for DCP at this time, her family will transport her home.
== END 2023-08-19 13:15 | disposition home or self-care (01) | DRG 193 ==
LOC: ED 21:08 → AC 21:39
PROVIDERS: Admitting Provider Internal Medicine; Emergency Provider Emergency Medicine; Family Provider Naturopath; PCP Family Medicine; Visit Provider Internal Medicine
DX: J12.3 Human metapneumovirus pneumonia (principal); J96.01 Acute respiratory failure with hypoxia; C15.9 Malignant neoplasm of esophagus, unspecified; J45.901 Unspecified asthma with (acute) exacerbation; F32.A Depression, unspecified; J45.909 Unspecified asthma, uncomplicated; G89.3 Neoplasm related pain (acute) (chronic); D69.6 Thrombocytopenia, unspecified
CPT/HCPCS: 36415; 71045; 80048; 80053; 83605; 83690; 83735; 84145; 85025; 85610; 85730; 87040; 87633; 94762; 97116; 97161; 97165; 97530; 97535; 99285; 99291; J1650; J2919